=== PATIENT | female | born 1945 | race African-American/Black ===

== ENCOUNTER 2020-02-11 11:46 | Inpatient (IN) ==
[2020-02-11] MEDS ORDERED: PANTOPRAZOLE 40 MG VIAL IV STA (12:15)
[2020-02-11 12:54] LABS: INR 1.2; PT Patient Result 12.8 SECS (9.8-11.9)
[2020-02-11 13:06] LABS: Albumin 2.6 G/DL (3.4-5.0); Bilirubin,Total 0.4 MG/DL (0.2-1.0); Calcium 10.6 MG/DL (8.5-10.1); Total Protein 8.1 G/DL (6.4-8.3); Uric Acid 11.5 MG/DL (2.6-6.0)
[2020-02-11 13:13] LABS: Basophils % 0.1 % (0.0-0.8); Eosinophils # 0.1 10*3/uL (0.0-0.87); Eosinophils % 0.5 % (0.00-10.9); Hematocrit 42.6 VOL% (35.7-47.0); Hemoglobin 12.5 GM/DL (12.0-16.0); Immature Granulocytes % 0.6 %; Immature Granulocytes Absolute 0.08 #; Lymphocytes # 2.9 10*3/uL (1.4-4.0); Lymphocytes % 21.2 % (21.3-54.2); Mean Corpuscular HGB Conc 29.3 GM/DL (32-36); Mean Corpuscular Volume 75.1 FL (87-102); Mean Platelet Volume 11.7 FL (9.6-12.0); Monocytes % 7.9 % (1.7-12.7); NRBC # 0.06 10*3/uL; Neutrophils % 69.7 % (38.7-73.9); Platelet Count 109 T/CUMM (130-400); Red Blood Count 5.67 MC/CUMM (3.8-5.5); Red Cell Distribution Width 17.1 % (9.3-17.3); White Blood Count 13.5 T/CUMM (4-12)
[2020-02-11 13:14] LABS: Platelet Estimate Adequate
[2020-02-11 13:15] LABS: Anisocytosis 1+; Burr Cells Few
[2020-02-11] MEDS ORDERED: SODIUM CHLORIDE 0.45% 1,000 ML IV ONE (14:20)
[2020-02-11] MEDS ORDERED: GLUCAGON 1 MG VIAL IM PRN (15:23)
[2020-02-11] MEDS ORDERED: DEXTROSE 50% 25 GM/50 ML VIAL IV PRN (15:23)
[2020-02-11 16:24] LABS: Risk Ratio 6.43; Thyroid Stimulating Hormone 1.23 uIU/ml (0.358-3.74); VLDL CHOLESTEROL 44.8 MG/DL
[2020-02-11] MEDS: SODIUM CHLORIDE 0.45% 1,000 ML IV SCH (18:26)
[2020-02-11] MEDS: INSULIN LISPRO 100 UNIT/ML SUBCUT SCH ×2 (18:27→20:59)
[2020-02-11] MEDS ORDERED: levETIRAcetam LIQUID 100 MG/ML 30 ML/BOTTLE PO SCH (21:00)
[2020-02-11] MEDS: PANTOPRAZOLE 40 MG VIAL IV SCH (21:21)
[2020-02-12] MEDS: SODIUM CHLORIDE 0.45% 1,000 ML IV SCH ×3 (03:33→20:52)
[2020-02-12 05:17] LABS: Albumin 2.1 G/DL (3.4-5.0); Bilirubin,Total 1.5 MG/DL (0.2-1.0); Calcium 9.1 MG/DL (8.5-10.1); Osmolality,Calculated 353.5 MOS/KG (273-304); Total Protein 6.7 G/DL (6.4-8.3)
[2020-02-12 07:14] LABS: Basophils % 0.1 % (0.0-0.8); Eosinophils % 0.1 % (0.00-10.9); Hematocrit 34.7 VOL% (35.7-47.0); Immature Granulocytes % 0.7 %; Immature Granulocytes Absolute 0.11 #; Lymphocytes # 3.4 10*3/uL (1.4-4.0); Mean Corpuscular HGB Conc 29.4 GM/DL (32-36); Mean Corpuscular Volume 76.6 FL (87-102); Monocytes % 7.5 % (1.7-12.7); NRBC # 0.13 10*3/uL; Neutrophils % 68.6 % (38.7-73.9); Red Cell Distribution Width 16.3 % (9.3-17.3); White Blood Count 14.9 T/CUMM (4-12)
[2020-02-12 07:15] LABS: Hemoglobin 10.2 GM/DL (12.0-16.0); Platelet Count 76 T/CUMM (130-400); Red Blood Count 4.53 MC/CUMM (3.8-5.5)
[2020-02-12 07:20] LABS: Macrocytosis Slight; Platelet Estimate Decreased; Polychromasia Slight
[2020-02-12] MEDS: INSULIN LISPRO 100 UNIT/ML SUBCUT SCH ×3 (07:51→19:09)
[2020-02-12] MEDS: PANTOPRAZOLE 40 MG VIAL IV SCH ×2 (09:20→20:51)
[2020-02-12 13:23] LABS: Hematocrit 34.2 VOL% (35.7-47.0); Hemoglobin 9.8 GM/DL (12.0-16.0)
[2020-02-13] MEDS: INSULIN LISPRO 100 UNIT/ML SUBCUT SCH ×4 (00:40→19:07)
[2020-02-13] MEDS: SODIUM CHLORIDE 0.45% 1,000 ML IV SCH ×2 (00:41→08:33)
[2020-02-13 08:16] LABS: Basophils % 0.2 % (0.0-0.8); Eosinophils # 0.1 10*3/uL (0.0-0.87); Eosinophils % 0.6 % (0.00-10.9); Hematocrit 30.1 VOL% (35.7-47.0); Hemoglobin 8.8 GM/DL (12.0-16.0); Immature Granulocytes Absolute 0.11 #; Lymphocytes # 2.4 10*3/uL (1.4-4.0); Lymphocytes % 22.2 % (21.3-54.2); Mean Corpuscular HGB Conc 29.2 GM/DL (32-36); Monocytes % 5.6 % (1.7-12.7); NRBC # 0.27 10*3/uL; Neutrophils % 70.4 % (38.7-73.9); Platelet Count 69 T/CUMM (130-400); Red Blood Count 3.91 MC/CUMM (3.8-5.5); Red Cell Distribution Width 16.5 % (9.3-17.3); White Blood Count 10.7 T/CUMM (4-12)
[2020-02-13 08:40] LABS: Calcium 8.8 MG/DL (8.5-10.1); Osmolality,Calculated 344.3 MOS/KG (273-304)
[2020-02-13 08:47] LABS: Anisocytosis 1+; Platelet Estimate Decreased
[2020-02-13 08:48] LABS: Ovalocytes Few; Poikilocytosis Slight; Polychromasia Slight
[2020-02-13] MEDS ORDERED: POTASSIUM CHLORIDE RIDER 10 MEQ in PREMIX 1 EACH IV PRN (09:14)
[2020-02-13] MEDS: PANTOPRAZOLE 40 MG VIAL IV SCH ×2 (09:54→22:14)
[2020-02-13 11:54] LABS: Hematocrit 28.4 VOL% (35.7-47.0); Hemoglobin 8.2 GM/DL (12.0-16.0)
[2020-02-13] MEDS: POTASSIUM CHLORIDE INJ 20 MEQ, SODIUM CHLORIDE 23.4% CONC INJ 38.5 MEQ in STERILE WATER... IV SCH ×2 (13:08→22:23)
[2020-02-14] MEDS: INSULIN LISPRO 100 UNIT/ML SUBCUT SCH ×3 (06:16→14:12)
[2020-02-14 06:31] LABS: Basophils % 0.1 % (0.0-0.8); Eosinophils # 0.1 10*3/uL (0.0-0.87); Eosinophils % 0.7 % (0.00-10.9); Hematocrit 25.8 VOL% (35.7-47.0); Immature Granulocytes % 1.6 %; Immature Granulocytes Absolute 0.16 #; Lymphocytes # 2.2 10*3/uL (1.4-4.0); Lymphocytes % 22.6 % (21.3-54.2); Mean Corpuscular HGB Conc 28.7 GM/DL (32-36); Mean Corpuscular Volume 78.2 FL (87-102); Monocytes % 6.3 % (1.7-12.7); NRBC # 0.43 10*3/uL; Neutrophils % 68.7 % (38.7-73.9); Red Cell Distribution Width 16.9 % (9.3-17.3); White Blood Count 9.7 T/CUMM (4-12)
[2020-02-14 06:37] LABS: Hemoglobin 7.4 GM/DL (12.0-16.0); Platelet Count 71 T/CUMM (130-400)
[2020-02-14 06:59] LABS: Calcium 8.4 MG/DL (8.5-10.1)
[2020-02-14 07:29] LABS: Hypochromasia 2+; Microcytosis Slight; Ovalocytes Slight; Platelet Estimate Decreased
[2020-02-14] MEDS ORDERED: SODIUM CHLORIDE 0.9% 1,000 ML IV PRN (08:26)
[2020-02-14] MEDS ORDERED: SODIUM CHLORIDE 23.4% CONC INJ 38.5 MEQ in STERILE WATER INJ 1,000 ML IV SCH (09:00)
[2020-02-14] MEDS: PANTOPRAZOLE 40 MG VIAL IV SCH ×2 (09:23→21:07)
[2020-02-14] MEDS: POTASSIUM CHLORIDE INJ 20 MEQ, SODIUM CHLORIDE 23.4% CONC INJ 38.5 MEQ in STERILE WATER... IV SCH (15:02)
[2020-02-14] MEDS: DEXTROSE 5% 1,000 ML IV SCH (21:14)
[2020-02-15] MEDS: INSULIN LISPRO 100 UNIT/ML SUBCUT SCH ×5 (00:51→18:19)
[2020-02-15] MEDS: DEXTROSE 5% 1,000 ML IV SCH ×2 (06:15→07:42)
[2020-02-15 07:01] LABS: Basophils % 0.2 % (0.0-0.8); Eosinophils # 0.1 10*3/uL (0.0-0.87); Eosinophils % 0.6 % (0.00-10.9); Hematocrit 34.9 VOL% (35.7-47.0); Hemoglobin 10.9 GM/DL (12.0-16.0); Immature Granulocytes Absolute 0.17 #; Lymphocytes # 1.1 10*3/uL (1.4-4.0); Lymphocytes % 12.9 % (21.3-54.2); Mean Corpuscular HGB Conc 31.2 GM/DL (32-36); Mean Corpuscular Volume 80.8 FL (87-102); Mean Platelet Volume 11.2 FL (9.6-12.0); NRBC # 0.47 10*3/uL; Neutrophils % 79.3 % (38.7-73.9); Platelet Count 81 T/CUMM (130-400); Red Blood Count 4.32 MC/CUMM (3.8-5.5); Red Cell Distribution Width 18.6 % (9.3-17.3); White Blood Count 8.7 T/CUMM (4-12)
[2020-02-15 07:38] LABS: Calcium 8.6 MG/DL (8.5-10.1); Osmolality,Calculated 318.4 MOS/KG (273-304)
[2020-02-15 07:41] LABS: Band Neutrophils 1 % (0-10); Hypochromasia 1+; Lymphocytes 11 % (20-55); Nucleated Red Blood Cells 11 (0-5); Platelet Estimate Decreased; Segmented Neutrophils 84 % (50-85); Total Cells Counted 100
[2020-02-15 07:42] LABS: Microcytosis Slight
[2020-02-15] MEDS: PANTOPRAZOLE 40 MG VIAL IV SCH ×2 (09:40→21:22)
[2020-02-15] MEDS: DEXTROSE 5% KCL 20 MEQ 20 MEQ/1,000 ML BAG IV SCH (10:23)
[2020-02-15] MEDS: INSULIN GLARGINE 100 UNIT/ML SUBCUT SCH (21:22)
[2020-02-16] MEDS: INSULIN LISPRO 100 UNIT/ML SUBCUT SCH ×4 (01:14→18:39)
[2020-02-16] MEDS: DEXTROSE 5% KCL 20 MEQ 20 MEQ/1,000 ML BAG IV SCH ×2 (01:14→13:48)
[2020-02-16 05:23] LABS: Basophils % 0.2 % (0.0-0.8); Eosinophils # 0.1 10*3/uL (0.0-0.87); Eosinophils % 1.2 % (0.00-10.9); Hematocrit 34.5 VOL% (35.7-47.0); Hemoglobin 10.7 GM/DL (12.0-16.0); Immature Granulocytes Absolute 0.18 #; Lymphocytes # 1.9 10*3/uL (1.4-4.0); Lymphocytes % 20.5 % (21.3-54.2); Mean Corpuscular Volume 80.4 FL (87-102); Mean Platelet Volume 12.4 FL (9.6-12.0); Monocytes % 6.6 % (1.7-12.7); NRBC # 0.22 10*3/uL; Neutrophils % 69.5 % (38.7-73.9); Platelet Count 95 T/CUMM (130-400); Red Blood Count 4.29 MC/CUMM (3.8-5.5); Red Cell Distribution Width 19.4 % (9.3-17.3); White Blood Count 9.1 T/CUMM (4-12)
[2020-02-16 05:24] LABS: INR 1.2
[2020-02-16 05:32] LABS: Calcium 8.9 MG/DL (8.5-10.1)
[2020-02-16 05:46] LABS: Eosinophils 1 % (0-10); Hypochromasia 1+; Lymphocytes 18 % (20-55); Ovalocytes Slight; Platelet Estimate Decreased; Segmented Neutrophils 75 % (50-85); Total Cells Counted 100
[2020-02-16 05:47] LABS: Microcytosis Slight
[2020-02-16] MEDS ORDERED: ceFAZolin 1,000 MG in SYRINGE 1 EACH IV ONE (08:22)
[2020-02-16] MEDS: LACTATED RINGERS 1,000 ML IV SCH (08:31)
[2020-02-16] MEDS ORDERED: ceFAZolin 1,000 MG VIAL ONE (08:32)
[2020-02-16] MEDS ORDERED: propofoL 200 MG/20 ML VIAL IV ONE (09:00)
[2020-02-16] MEDS ORDERED: LIDOCAINE 100 MG/5 ML SYRINGE ONE (09:00)
[2020-02-16] MEDS ORDERED: PHENYLEPHRINE 1 MG/10 ML SYRINGE IV ONE (09:00)
[2020-02-16] MEDS: PANTOPRAZOLE 40 MG VIAL IV SCH ×2 (11:14→20:25)
[2020-02-16] MEDS ORDERED: BISACODYL 5 MG TABLET PO ONE (12:00)
[2020-02-16] MEDS ORDERED: POLYETHYLENE GLYCOL POWDER 255 GM BOTTLE PO ONE (18:00)
[2020-02-16] MEDS: ONDANSETRON 4 MG/2 ML VIAL IV PRN (20:05)
[2020-02-16] MEDS ORDERED: MAGNESIUM CITRATE 300 ML BOTTLE PO ONE (21:00)
[2020-02-16] MEDS: INSULIN GLARGINE 100 UNIT/ML SUBCUT SCH (21:33)
[2020-02-17] MEDS: INSULIN LISPRO 100 UNIT/ML SUBCUT SCH ×4 (00:31→18:56)
[2020-02-17] MEDS: DEXTROSE 5% KCL 20 MEQ 20 MEQ/1,000 ML BAG IV SCH ×2 (01:35→17:37)
[2020-02-17 05:32] LABS: Basophils % 0.1 % (0.0-0.8); Eosinophils # 0.1 10*3/uL (0.0-0.87); Eosinophils % 1.1 % (0.00-10.9); Hematocrit 33.8 VOL% (35.7-47.0); Hemoglobin 10.4 GM/DL (12.0-16.0); Immature Granulocytes % 1.5 %; Immature Granulocytes Absolute 0.14 #; Lymphocytes # 1.9 10*3/uL (1.4-4.0); Lymphocytes % 20.4 % (21.3-54.2); Mean Corpuscular HGB Conc 30.8 GM/DL (32-36); Mean Corpuscular Volume 81.6 FL (87-102); Mean Platelet Volume 11.1 FL (9.6-12.0); Monocytes % 8.6 % (1.7-12.7); NRBC # 0.04 10*3/uL; Neutrophils % 68.3 % (38.7-73.9); Platelet Count 106 T/CUMM (130-400); Red Blood Count 4.14 MC/CUMM (3.8-5.5); White Blood Count 9.1 T/CUMM (4-12)
[2020-02-17 05:37] LABS: INR 1.3; PT Patient Result 13.3 SECS (9.8-11.9)
[2020-02-17 05:57] LABS: Lymphocytes 23 % (20-55); Nucleated Red Blood Cells 1 (0-5); Platelet Estimate Decreased; Segmented Neutrophils 70 % (50-85); Total Cells Counted 100
[2020-02-17 05:58] LABS: Hypochromasia 1+; Microcytosis Slight; Ovalocytes Slight
[2020-02-17 06:03] LABS: Calcium 8.6 MG/DL (8.5-10.1); Osmolality,Calculated 295.6 MOS/KG (273-304)
[2020-02-17] MEDS ORDERED: LACTATED RINGERS 1,000 ML IV SCH (08:00)
[2020-02-17] MEDS ORDERED: POLYETHYLENE GLYCOL POWDER 255 GM BOTTLE PO ONE (08:36)
[2020-02-17] MEDS: PANTOPRAZOLE 40 MG VIAL IV SCH ×2 (08:37→22:18)
[2020-02-17] MEDS ORDERED: [UNRECOGNIZED DRUG - OTHER] IV SCH (09:00)
[2020-02-17] MEDS ORDERED: POTASSIUM CHLORIDE IV SCH (09:00)
[2020-02-17] MEDS ORDERED: SODIUM BICARB IV SCH (09:00)
[2020-02-17] MEDS: LACTATED RINGERS 1,000 ML IV SCH (09:33)
[2020-02-17] MEDS: POTASSIUM CHLORIDE 20 MEQ/15 ML UDCUP PER TUBE PRN ×4 (09:35→19:35)
[2020-02-17] MEDS: DEXTROSE 5% IV SCH (12:16)
[2020-02-17] MEDS: SODIUM BICARB IV SCH (12:16)
[2020-02-17] MEDS: POTASSIUM CHLORIDE IV SCH (12:16)
[2020-02-17] MEDS: INSULIN GLARGINE 100 UNIT/ML SUBCUT SCH (20:54)
[2020-02-17] MEDS ORDERED: MAGNESIUM CITRATE 300 ML BOTTLE PO ONE (21:30)
[2020-02-17] MEDS: ONDANSETRON 4 MG/2 ML VIAL IV PRN (22:56)
[2020-02-18] MEDS: INSULIN LISPRO 100 UNIT/ML SUBCUT SCH ×4 (01:06→18:53)
[2020-02-18 06:00] LABS: Calcium 8.8 MG/DL (8.5-10.1); Osmolality,Calculated 290.7 MOS/KG (273-304)
[2020-02-18] MEDS: SODIUM BICARB IV SCH ×2 (06:13→20:13)
[2020-02-18] MEDS: DEXTROSE 5% IV SCH ×2 (06:13→20:13)
[2020-02-18] MEDS: POTASSIUM CHLORIDE IV SCH ×2 (06:13→20:13)
[2020-02-18 06:57] LABS: Basophils % 0.1 % (0.0-0.8); Eosinophils # 0.1 10*3/uL (0.0-0.87); Hematocrit 33.1 VOL% (35.7-47.0); Hemoglobin 10.1 GM/DL (12.0-16.0); Immature Granulocytes % 1.2 %; Lymphocytes # 1.8 10*3/uL (1.4-4.0); Lymphocytes % 22.3 % (21.3-54.2); Mean Corpuscular HGB Conc 30.5 GM/DL (32-36); Mean Corpuscular Volume 81.5 FL (87-102); Mean Platelet Volume 11.8 FL (9.6-12.0); Monocytes % 6.7 % (1.7-12.7); NRBC # 0.04 10*3/uL; Neutrophils % 68.7 % (38.7-73.9); Platelet Count 122 T/CUMM (130-400); Red Blood Count 4.06 MC/CUMM (3.8-5.5); White Blood Count 8.2 T/CUMM (4-12)
[2020-02-18 07:20] LABS: Eosinophils 1 % (0-10); Lymphocytes 17 % (20-55); Segmented Neutrophils 74 % (50-85); Total Cells Counted 100
[2020-02-18 07:21] LABS: Hypochromasia 1+; Microcytosis 1+
[2020-02-18] MEDS ORDERED: LACTATED RINGERS 1,000 ML IV SCH (08:00)
[2020-02-18] MEDS ORDERED: POLYETHYLENE GLYCOL POWDER 255 GM BOTTLE PO ONE (08:21)
[2020-02-18] MEDS: PANTOPRAZOLE 40 MG VIAL IV SCH ×2 (09:11→20:10)
[2020-02-18] MEDS: INSULIN GLARGINE 100 UNIT/ML SUBCUT SCH (21:05)
[2020-02-18] MEDS ORDERED: MAGNESIUM CITRATE 300 ML BOTTLE PO ONE (22:19)
[2020-02-19] MEDS: INSULIN LISPRO 100 UNIT/ML SUBCUT SCH ×4 (01:13→18:17)
[2020-02-19 05:31] LABS: Basophils % 0.2 % (0.0-0.8); Eosinophils # 0.1 10*3/uL (0.0-0.87); Eosinophils % 0.6 % (0.00-10.9); Hematocrit 30.8 VOL% (35.7-47.0); Hemoglobin 9.6 GM/DL (12.0-16.0); Immature Granulocytes Absolute 0.08 #; Lymphocytes # 1.6 10*3/uL (1.4-4.0); Lymphocytes % 19.9 % (21.3-54.2); Mean Corpuscular HGB Conc 31.2 GM/DL (32-36); Mean Corpuscular Volume 80.2 FL (87-102); Mean Platelet Volume 10.5 FL (9.6-12.0); Monocytes % 7.9 % (1.7-12.7); Neutrophils % 70.4 % (38.7-73.9); Platelet Count 146 T/CUMM (130-400); Red Blood Count 3.84 MC/CUMM (3.8-5.5); Red Cell Distribution Width 20.9 % (9.3-17.3); White Blood Count 8.2 T/CUMM (4-12)
[2020-02-19 06:05] LABS: Calcium 8.5 MG/DL (8.5-10.1); Osmolality,Calculated 281.3 MOS/KG (273-304)
[2020-02-19] MEDS ORDERED: LACTATED RINGERS 1,000 ML IV SCH (08:00)
[2020-02-19] MEDS: PANTOPRAZOLE 40 MG VIAL IV SCH ×2 (10:25→21:07)
[2020-02-19] MEDS: DEXTROSE 5% IV SCH (10:35)
[2020-02-19] MEDS: SODIUM BICARB IV SCH (10:35)
[2020-02-19] MEDS: POTASSIUM CHLORIDE IV SCH (10:35)
[2020-02-19] MEDS ORDERED: POTASSIUM PHOSPHATE 21 MMOL in SODIUM CHLORIDE 0.9% 250 ML IV ONE (12:30)
[2020-02-19] MEDS: INSULIN GLARGINE 100 UNIT/ML SUBCUT SCH (21:06)
[2020-02-20] MEDS: INSULIN LISPRO 100 UNIT/ML SUBCUT SCH ×3 (01:19→12:04)
[2020-02-20 06:21] LABS: Basophils % 0.1 % (0.0-0.8); Eosinophils # 0.1 10*3/uL (0.0-0.87); Eosinophils % 0.8 % (0.00-10.9); Hematocrit 27.3 VOL% (35.7-47.0); Hemoglobin 8.9 GM/DL (12.0-16.0); Immature Granulocytes % 0.8 %; Immature Granulocytes Absolute 0.07 #; Lymphocytes # 1.5 10*3/uL (1.4-4.0); Lymphocytes % 16.6 % (21.3-54.2); Mean Corpuscular HGB Conc 32.6 GM/DL (32-36); Mean Corpuscular Volume 77.3 FL (87-102); Mean Platelet Volume 10.6 FL (9.6-12.0); Monocytes % 7.7 % (1.7-12.7); Platelet Count 164 T/CUMM (130-400); Red Blood Count 3.53 MC/CUMM (3.8-5.5); Red Cell Distribution Width 20.7 % (9.3-17.3); White Blood Count 9.2 T/CUMM (4-12)
[2020-02-20] MEDS ORDERED: SUCRALFATE 1 GM/10 ML UDCUP RECTAL SCH (09:00)
[2020-02-20] MEDS ORDERED: LACTULOSE 20 GM/30 ML UDCUP PO SCH (09:00)
[2020-02-20] MEDS: PANTOPRAZOLE 40 MG VIAL IV SCH (10:10)
[2020-02-20 11:46] VITALS: BP 148/81
== END 2020-02-20 13:29 | DRG 252 ==
LOC: EDUNIT# → EDBD → N.ED 11:46 → SUATTDRO 14:51 → N.EDINP 14:51 → N.TELES 17:06 → N.4E 02-16 11:58
PROVIDERS: ADMIT Internal Medicine; ATTEND Hospitalist
PROC: EGDWPEG (ICD-10-PCS; 2020-02-16 08:05)

== ENCOUNTER 2020-02-26 20:35 | Inpatient (IN) ==
[2020-02-26] MEDS ORDERED: SODIUM CHLORIDE 0.9% 500 ML IV STA (22:26)
[2020-02-26] MEDS ORDERED: PANTOPRAZOLE 40 MG VIAL IV STA (22:26)
[2020-02-26] MEDS ORDERED: ONDANSETRON 4 MG/2 ML VIAL IV STA (22:26)
[2020-02-26 22:48] LABS: Basophils % 0.3 % (0.0-0.8); Eosinophils # 0.1 10*3/uL (0.0-0.87); Eosinophils % 0.5 % (0.00-10.9); Hematocrit 31.7 VOL% (35.7-47.0); Hemoglobin 9.7 GM/DL (12.0-16.0); Immature Granulocytes % 0.8 %; Immature Granulocytes Absolute 0.08 #; Lymphocytes # 1.7 10*3/uL (1.4-4.0); Lymphocytes % 17.7 % (21.3-54.2); Mean Corpuscular HGB Conc 30.6 GM/DL (32-36); Mean Corpuscular Volume 80.7 FL (87-102); Mean Platelet Volume 9.4 FL (9.6-12.0); Monocytes % 9.5 % (1.7-12.7); NRBC # 0.05 10*3/uL; Neutrophils % 71.2 % (38.7-73.9); Platelet Count 311 T/CUMM (130-400); Red Blood Count 3.93 MC/CUMM (3.8-5.5); Red Cell Distribution Width 21.2 % (9.3-17.3); White Blood Count 9.9 T/CUMM (4-12)
[2020-02-26 22:57] LABS: PT Patient Result 11.2 SECS (9.8-11.9)
[2020-02-26 23:12] LABS: Albumin 1.7 G/DL (3.4-5.0); Bilirubin,Total 0.4 MG/DL (0.2-1.0); Osmolality,Calculated 286.4 MOS/KG (273-304); Total Protein 7.3 G/DL (6.4-8.3)
[2020-02-27] MEDS ORDERED: hydrALAZINE 20 MG/1 ML VIAL IV PRN (00:46)
[2020-02-27] MEDS ORDERED: NICOTINE 21 MG/24 HR PATCH TRANSDERM PRN (00:46)
[2020-02-27] MEDS ORDERED: GLUCAGON 1 MG VIAL IM PRN (00:46)
[2020-02-27] MEDS ORDERED: DEXTROSE 50% 25 GM/50 ML VIAL IV PRN (00:46)
[2020-02-27] MEDS ORDERED: ONDANSETRON 4 MG/2 ML VIAL IV PRN (00:46)
[2020-02-27 06:12] LABS: Basophils % 0.3 % (0.0-0.8); Eosinophils % 0.3 % (0.00-10.9); Hemoglobin 8.1 GM/DL (12.0-16.0); Immature Granulocytes % 0.9 %; Immature Granulocytes Absolute 0.09 #; Lymphocytes # 1.7 10*3/uL (1.4-4.0); Lymphocytes % 16.7 % (21.3-54.2); Mean Corpuscular HGB Conc 31.2 GM/DL (32-36); Mean Platelet Volume 9.1 FL (9.6-12.0); Monocytes % 9.9 % (1.7-12.7); NRBC # 0.04 10*3/uL; Neutrophils % 71.9 % (38.7-73.9); Platelet Count 335 T/CUMM (130-400); Red Blood Count 3.29 MC/CUMM (3.8-5.5); White Blood Count 9.9 T/CUMM (4-12)
[2020-02-27] MEDS ORDERED: SODIUM CHLORIDE 0.9% 1,000 ML IV PRN (06:42)
[2020-02-27] MEDS: INSULIN REGULAR 100 UNIT/ML SUBCUT SCH ×4 (09:14→20:19)
[2020-02-27] MEDS: CIPROFLOXACIN INJ 400 MG in PREMIX 1 EACH IV SCH ×2 (09:49→20:19)
[2020-02-27 10:40] LABS: Apearance,Urine CLEAR (Clear); Bilirubin,Urine Negative (Negative); Blood, Urine Negative (Negative); Glucose,Urine (UA) >=500 mg/dL (Negative); Ketones,Urine 5 mg/dL (Negative); Nitrite,Urine Negative (Negative); Protein,Urine 30 MG/DL; RBC,Urine 1 /HPF (0-4); Squamous Epithelial Cell,Urine Occasional /HPF (0-10); Urine Color Yellow (Yellow); Urine Specific Gravity 1.012 (1.001-1.035); Urine Urobilinogen < 2.0 EU/DL (0.2-1.0); WBC,Urine 1 /HPF (0-6)
[2020-02-27] MEDS: metroNIDAZOLE INJ 500 MG in PREMIX 1 EACH IV SCH ×2 (10:51→17:23)
[2020-02-27] MEDS: SODIUM CHLORIDE 0.45% 1,000 ML IV SCH (17:23)
[2020-02-28] MEDS: metroNIDAZOLE INJ 500 MG in PREMIX 1 EACH IV SCH ×3 (01:56→18:11)
[2020-02-28 06:38] LABS: Basophils % 0.3 % (0.0-0.8); Eosinophils # 0.1 10*3/uL (0.0-0.87); Eosinophils % 0.6 % (0.00-10.9); Hematocrit 29.7 VOL% (35.7-47.0); Hemoglobin 9.4 GM/DL (12.0-16.0); Immature Granulocytes % 1.1 %; Immature Granulocytes Absolute 0.11 #; Lymphocytes # 2.3 10*3/uL (1.4-4.0); Lymphocytes % 22.1 % (21.3-54.2); Mean Corpuscular HGB Conc 31.6 GM/DL (32-36); Mean Corpuscular Volume 81.4 FL (87-102); Mean Platelet Volume 9.1 FL (9.6-12.0); NRBC # 0.04 10*3/uL; Neutrophils % 66.9 % (38.7-73.9); Platelet Count 304 T/CUMM (130-400); Red Blood Count 3.65 MC/CUMM (3.8-5.5); White Blood Count 10.2 T/CUMM (4-12)
[2020-02-28 06:49] LABS: Osmolality,Calculated 281.4 MOS/KG (273-304)
[2020-02-28 06:54] LABS: Albumin 1.6 G/DL (3.4-5.0); Bilirubin,Total 0.8 MG/DL (0.2-1.0); Calcium 9.1 MG/DL (8.5-10.1); Osmolality,Calculated 281.4 MOS/KG (273-304); Total Protein 6.8 G/DL (6.4-8.3)
[2020-02-28 06:55] LABS: % Iron Saturation 20.4 % (18-50)
[2020-02-28 07:13] LABS: Folate 8.4 NG/ML (5.4-24.0)
[2020-02-28] MEDS: CIPROFLOXACIN INJ 400 MG in PREMIX 1 EACH IV SCH ×2 (08:01→20:45)
[2020-02-28] MEDS: INSULIN REGULAR 100 UNIT/ML SUBCUT SCH ×4 (08:14→21:13)
[2020-02-28] MEDS ORDERED: IRON SUCROSE 300 MG in SODIUM CHLORIDE 0.9% 100 ML IV ONE (09:00)
[2020-02-28] MEDS: SODIUM CHLORIDE 0.45% 1,000 ML IV SCH (20:44)
[2020-02-29] MEDS: metroNIDAZOLE INJ 500 MG in PREMIX 1 EACH IV SCH ×3 (01:15→17:20)
[2020-02-29 06:52] LABS: Basophils % 0.5 % (0.0-0.8); Eosinophils # 0.1 10*3/uL (0.0-0.87); Eosinophils % 0.7 % (0.00-10.9); Hematocrit 33.6 VOL% (35.7-47.0); Hemoglobin 10.6 GM/DL (12.0-16.0); Immature Granulocytes % 1.4 %; Immature Granulocytes Absolute 0.12 #; Lymphocytes # 1.5 10*3/uL (1.4-4.0); Lymphocytes % 18.1 % (21.3-54.2); Mean Corpuscular HGB Conc 31.5 GM/DL (32-36); Mean Corpuscular Volume 81.2 FL (87-102); Mean Platelet Volume 10.6 FL (9.6-12.0); Monocytes % 8.3 % (1.7-12.7); NRBC # 0.06 10*3/uL; Platelet Count 230 T/CUMM (130-400); Red Blood Count 4.14 MC/CUMM (3.8-5.5); Red Cell Distribution Width 21.1 % (9.3-17.3); White Blood Count 8.5 T/CUMM (4-12)
[2020-02-29 07:15] LABS: Albumin 1.6 G/DL (3.4-5.0); Bilirubin,Total 0.6 MG/DL (0.2-1.0); Calcium 9.2 MG/DL (8.5-10.1); Osmolality,Calculated 274.1 MOS/KG (273-304); Total Protein 7.3 G/DL (6.4-8.3)
[2020-02-29] MEDS: INSULIN REGULAR 100 UNIT/ML SUBCUT SCH ×4 (08:16→20:50)
[2020-02-29] MEDS: SODIUM CHLORIDE 0.45% 1,000 ML IV SCH (09:46)
[2020-02-29] MEDS: CIPROFLOXACIN INJ 400 MG in PREMIX 1 EACH IV SCH ×2 (09:47→20:47)
[2020-03-01] MEDS: metroNIDAZOLE INJ 500 MG in PREMIX 1 EACH IV SCH ×3 (02:05→17:25)
[2020-03-01] MEDS: SODIUM CHLORIDE 0.45% 1,000 ML IV SCH (02:36)
[2020-03-01] MEDS: MORPHINE 4 MG/1 ML VIAL IV PRN ×2 (05:54→13:06)
[2020-03-01 06:32] LABS: Basophils % 0.4 % (0.0-0.8); Eosinophils # 0.1 10*3/uL (0.0-0.87); Eosinophils % 0.5 % (0.00-10.9); Hematocrit 33.9 VOL% (35.7-47.0); Hemoglobin 10.4 GM/DL (12.0-16.0); Immature Granulocytes % 2.3 %; Immature Granulocytes Absolute 0.23 #; Lymphocytes # 1.6 10*3/uL (1.4-4.0); Lymphocytes % 16.1 % (21.3-54.2); Mean Corpuscular HGB Conc 30.7 GM/DL (32-36); Mean Corpuscular Volume 82.1 FL (87-102); Mean Platelet Volume 9.3 FL (9.6-12.0); Monocytes % 9.5 % (1.7-12.7); NRBC # 0.06 10*3/uL; Neutrophils % 71.2 % (38.7-73.9); Platelet Count 352 T/CUMM (130-400); Red Blood Count 4.13 MC/CUMM (3.8-5.5); Red Cell Distribution Width 21.2 % (9.3-17.3)
[2020-03-01 06:49] LABS: Calcium 9.1 MG/DL (8.5-10.1); Osmolality,Calculated 275.1 MOS/KG (273-304)
[2020-03-01 06:50] LABS: Albumin 1.7 G/DL (3.4-5.0); Bilirubin,Total 0.5 MG/DL (0.2-1.0); Calcium 9.4 MG/DL (8.5-10.1); Osmolality,Calculated 274.1 MOS/KG (273-304); Total Protein 7.5 G/DL (6.4-8.3)
[2020-03-01] MEDS: INSULIN REGULAR 100 UNIT/ML SUBCUT SCH ×3 (07:55→17:55)
[2020-03-01] MEDS: CIPROFLOXACIN INJ 400 MG in PREMIX 1 EACH IV SCH ×2 (08:15→21:45)
[2020-03-01] MEDS ORDERED: LORazepam 2 MG/1 ML VIAL IV PRN (09:08)
[2020-03-01] MEDS ORDERED: LACTULOSE 20 GM/30 ML UDCUP PO SCH (09:30)
[2020-03-01] MEDS: carvediloL 12.5 MG TABLET PO SCH ×2 (10:05→17:31)
[2020-03-01] MEDS: amLODIPine 10 MG TABLET PO SCH (10:05)
[2020-03-01] MEDS ORDERED: POTASSIUM PHOSPHATE 30 MMOL in SODIUM CHLORIDE 0.9% 250 ML IV ONE (17:09)
[2020-03-02] MEDS: INSULIN REGULAR 100 UNIT/ML SUBCUT SCH ×4 (01:13→17:03)
[2020-03-02] MEDS: metroNIDAZOLE INJ 500 MG in PREMIX 1 EACH IV SCH ×3 (01:42→16:40)
[2020-03-02] MEDS: SODIUM CHLORIDE 0.45% 1,000 ML IV SCH (05:04)
[2020-03-02 05:26] LABS: Basophils % 0.3 % (0.0-0.8); Eosinophils # 0.1 10*3/uL (0.0-0.87); Eosinophils % 0.6 % (0.00-10.9); Hematocrit 31.4 VOL% (35.7-47.0); Hemoglobin 9.8 GM/DL (12.0-16.0); Immature Granulocytes % 2.1 %; Immature Granulocytes Absolute 0.21 #; Lymphocytes # 1.8 10*3/uL (1.4-4.0); Lymphocytes % 18.2 % (21.3-54.2); Mean Corpuscular HGB Conc 31.2 GM/DL (32-36); Mean Corpuscular Volume 80.9 FL (87-102); Mean Platelet Volume 8.5 FL (9.6-12.0); Monocytes % 6.9 % (1.7-12.7); Neutrophils % 71.9 % (38.7-73.9); Platelet Count 347 T/CUMM (130-400); Red Blood Count 3.88 MC/CUMM (3.8-5.5); Red Cell Distribution Width 21.2 % (9.3-17.3); White Blood Count 9.9 T/CUMM (4-12)
[2020-03-02 05:39] LABS: Albumin 1.5 G/DL (3.4-5.0); Bilirubin,Total 0.4 MG/DL (0.2-1.0); Osmolality,Calculated 277.5 MOS/KG (273-304); Total Protein 6.8 G/DL (6.4-8.3)
[2020-03-02] MEDS ORDERED: MAGNESIUM SULF RIDER 2 GM in PREMIX 1 EACH IV PRN (07:01)
[2020-03-02] MEDS ORDERED: MAGNESIUM SULF RIDER 4 GM in PREMIX 1 EACH IV PRN (07:01)
[2020-03-02] MEDS ORDERED: POTASSIUM CHLORIDE 20 MEQ/15 ML UDCUP PER TUBE PRN (07:01)
[2020-03-02] MEDS: amLODIPine 10 MG TABLET PO SCH (08:50)
[2020-03-02] MEDS: carvediloL 12.5 MG TABLET PO SCH ×2 (08:50→16:50)
[2020-03-02] MEDS: CIPROFLOXACIN INJ 400 MG in PREMIX 1 EACH IV SCH ×2 (08:51→21:42)
[2020-03-02] MEDS: levETIRAcetam LIQUID 100 MG/ML 30 ML/BOTTLE PO SCH ×2 (10:48→21:43)
[2020-03-02] MEDS: FAT EMULSION 20% 250 ML IV SCH (16:30)
[2020-03-02] MEDS: AMINO ACIDS IV SCH (16:32)
[2020-03-02] MEDS: POTASSIUM PHOSPHATE IV SCH (16:32)
[2020-03-02] MEDS: DEXT IV SCH (16:32)
[2020-03-02] MEDS: LYTES IV SCH (16:32)
[2020-03-02] MEDS ORDERED: DEXTROSE 10% 1,000 ML IV PRN (17:00)
[2020-03-03] MEDS: INSULIN REGULAR 100 UNIT/ML SUBCUT SCH ×4 (01:26→18:15)
[2020-03-03] MEDS: metroNIDAZOLE INJ 500 MG in PREMIX 1 EACH IV SCH ×3 (03:15→16:56)
[2020-03-03 06:20] LABS: Basophils % 0.3 % (0.0-0.8); Eosinophils % 0.2 % (0.00-10.9); Hematocrit 34.5 VOL% (35.7-47.0); Immature Granulocytes % 1.3 %; Immature Granulocytes Absolute 0.17 #; Lymphocytes # 1.8 10*3/uL (1.4-4.0); Lymphocytes % 14.2 % (21.3-54.2); Mean Corpuscular HGB Conc 31.9 GM/DL (32-36); Mean Corpuscular Volume 80.8 FL (87-102); Mean Platelet Volume 9.5 FL (9.6-12.0); Monocytes % 6.1 % (1.7-12.7); Neutrophils % 77.9 % (38.7-73.9); Platelet Count 402 T/CUMM (130-400); Red Blood Count 4.27 MC/CUMM (3.8-5.5); Red Cell Distribution Width 21.3 % (9.3-17.3); White Blood Count 12.9 T/CUMM (4-12)
[2020-03-03] MEDS: carvediloL 12.5 MG TABLET PO SCH (06:24)
[2020-03-03 06:51] LABS: Prealbumin 11.1 MG/DL (20-40)
[2020-03-03 07:24] LABS: Albumin 1.8 G/DL (3.4-5.0); Bilirubin,Total 0.4 MG/DL (0.2-1.0); Calcium 9.5 MG/DL (8.5-10.1); Osmolality,Calculated 280.8 MOS/KG (273-304); Total Protein 7.7 G/DL (6.4-8.3)
[2020-03-03] MEDS ORDERED: SODIUM CHLORIDE 0.9% 500 ML IV ONE (08:01)
[2020-03-03] MEDS: levETIRAcetam LIQUID 100 MG/ML 30 ML/BOTTLE PO SCH (09:30)
[2020-03-03] MEDS: amLODIPine 10 MG TABLET PO SCH (09:30)
[2020-03-03] MEDS: METOPROLOL TARTRATE 5 MG/5 ML VIAL IV SCH ×2 (11:12→18:12)
[2020-03-03] MEDS: CIPROFLOXACIN INJ 400 MG in PREMIX 1 EACH IV SCH ×2 (13:46→20:14)
[2020-03-03] MEDS: FAT EMULSION 20% 250 ML IV SCH (14:54)
[2020-03-03] MEDS: AMINO ACIDS IV SCH (16:57)
[2020-03-03] MEDS: POTASSIUM PHOSPHATE IV SCH (16:57)
[2020-03-03] MEDS: DEXT IV SCH (16:57)
[2020-03-03] MEDS: LYTES IV SCH (16:57)
[2020-03-04] MEDS: INSULIN REGULAR 100 UNIT/ML SUBCUT SCH ×4 (00:16→17:40)
[2020-03-04] MEDS: METOPROLOL TARTRATE 5 MG/5 ML VIAL IV SCH ×4 (00:17→17:10)
[2020-03-04] MEDS: metroNIDAZOLE INJ 500 MG in PREMIX 1 EACH IV SCH ×3 (00:37→17:21)
[2020-03-04 05:49] LABS: Basophils % 0.2 % (0.0-0.8); Eosinophils # 0.1 10*3/uL (0.0-0.87); Eosinophils % 0.7 % (0.00-10.9); Hematocrit 32.6 VOL% (35.7-47.0); Hemoglobin 10.1 GM/DL (12.0-16.0); Immature Granulocytes % 1.4 %; Immature Granulocytes Absolute 0.16 #; Lymphocytes # 1.9 10*3/uL (1.4-4.0); Lymphocytes % 16.4 % (21.3-54.2); Mean Corpuscular Volume 82.1 FL (87-102); Mean Platelet Volume 8.8 FL (9.6-12.0); Monocytes % 8.2 % (1.7-12.7); Neutrophils % 73.1 % (38.7-73.9); Platelet Count 370 T/CUMM (130-400); Red Blood Count 3.97 MC/CUMM (3.8-5.5); Red Cell Distribution Width 21.1 % (9.3-17.3); White Blood Count 11.7 T/CUMM (4-12)
[2020-03-04 06:00] LABS: Calcium 8.8 MG/DL (8.5-10.1); Osmolality,Calculated 280.8 MOS/KG (273-304)
[2020-03-04] MEDS ORDERED: LIDOCAINE 2% 5 ML VIAL ONE (09:00)
[2020-03-04] MEDS ORDERED: propofoL 200 MG/20 ML VIAL IV ONE (09:00)
[2020-03-04] MEDS: LACTATED RINGERS 1,000 ML IV SCH (10:46)
[2020-03-04] MEDS: INSULIN GLARGINE 100 UNIT/ML SUBCUT SCH (11:28)
[2020-03-04] MEDS: CIPROFLOXACIN INJ 400 MG in PREMIX 1 EACH IV SCH ×2 (12:44→22:21)
[2020-03-04] MEDS: FAT EMULSION 20% 250 ML IV SCH (14:34)
[2020-03-04] MEDS: LYTES IV SCH (17:21)
[2020-03-04] MEDS: DEXT IV SCH (17:21)
[2020-03-04] MEDS: POTASSIUM PHOSPHATE IV SCH (17:21)
[2020-03-04] MEDS: AMINO ACIDS IV SCH (17:21)
[2020-03-05] MEDS: INSULIN REGULAR 100 UNIT/ML SUBCUT SCH ×4 (00:58→18:14)
[2020-03-05] MEDS: METOPROLOL TARTRATE 5 MG/5 ML VIAL IV SCH ×4 (00:59→18:14)
[2020-03-05] MEDS: metroNIDAZOLE INJ 500 MG in PREMIX 1 EACH IV SCH ×3 (01:45→16:41)
[2020-03-05 05:53] LABS: Basophils % 0.3 % (0.0-0.8); Eosinophils # 0.1 10*3/uL (0.0-0.87); Eosinophils % 0.7 % (0.00-10.9); Hematocrit 30.4 VOL% (35.7-47.0); Hemoglobin 9.6 GM/DL (12.0-16.0); Immature Granulocytes % 1.6 %; Immature Granulocytes Absolute 0.18 #; Lymphocytes % 17.3 % (21.3-54.2); Mean Corpuscular HGB Conc 31.6 GM/DL (32-36); Mean Corpuscular Volume 81.3 FL (87-102); Mean Platelet Volume 8.7 FL (9.6-12.0); Monocytes % 9.1 % (1.7-12.7); Platelet Count 364 T/CUMM (130-400); Red Blood Count 3.74 MC/CUMM (3.8-5.5); Red Cell Distribution Width 21.1 % (9.3-17.3); White Blood Count 11.4 T/CUMM (4-12)
[2020-03-05 06:24] LABS: Calcium 9.1 MG/DL (8.5-10.1); Osmolality,Calculated 281.7 MOS/KG (273-304)
[2020-03-05] MEDS: CIPROFLOXACIN INJ 400 MG in PREMIX 1 EACH IV SCH ×2 (08:15→21:38)
[2020-03-05] MEDS: INSULIN GLARGINE 100 UNIT/ML SUBCUT SCH (08:55)
[2020-03-05] MEDS: LACTATED RINGERS 1,000 ML IV SCH (16:49)
[2020-03-06] MEDS: METOPROLOL TARTRATE 5 MG/5 ML VIAL IV SCH ×4 (01:14→17:01)
[2020-03-06] MEDS: INSULIN REGULAR 100 UNIT/ML SUBCUT SCH ×4 (01:14→17:03)
[2020-03-06] MEDS: POTASSIUM PHOSPHATE IV SCH (01:15)
[2020-03-06] MEDS: LYTES IV SCH (01:15)
[2020-03-06] MEDS: DEXT IV SCH (01:15)
[2020-03-06] MEDS: AMINO ACIDS IV SCH (01:15)
[2020-03-06] MEDS: metroNIDAZOLE INJ 500 MG in PREMIX 1 EACH IV SCH ×3 (01:44→17:00)
[2020-03-06 05:21] LABS: Basophils % 0.3 % (0.0-0.8); Eosinophils # 0.2 10*3/uL (0.0-0.87); Eosinophils % 1.8 % (0.00-10.9); Hematocrit 31.3 VOL% (35.7-47.0); Hemoglobin 9.8 GM/DL (12.0-16.0); Immature Granulocytes % 1.5 %; Immature Granulocytes Absolute 0.19 #; Lymphocytes # 2.9 10*3/uL (1.4-4.0); Lymphocytes % 23.2 % (21.3-54.2); Mean Corpuscular HGB Conc 31.3 GM/DL (32-36); Mean Corpuscular Volume 81.7 FL (87-102); Mean Platelet Volume 8.9 FL (9.6-12.0); Monocytes % 10.9 % (1.7-12.7); Neutrophils % 62.3 % (38.7-73.9); Platelet Count 358 T/CUMM (130-400); Red Blood Count 3.83 MC/CUMM (3.8-5.5); Red Cell Distribution Width 21.4 % (9.3-17.3); White Blood Count 12.6 T/CUMM (4-12)
[2020-03-06 05:47] LABS: Calcium 9.3 MG/DL (8.5-10.1); Osmolality,Calculated 278.7 MOS/KG (273-304)
[2020-03-06] MEDS: CIPROFLOXACIN INJ 400 MG in PREMIX 1 EACH IV SCH ×2 (08:20→20:56)
[2020-03-06] MEDS: INSULIN GLARGINE 100 UNIT/ML SUBCUT SCH (08:29)
[2020-03-07] MEDS: metroNIDAZOLE INJ 500 MG in PREMIX 1 EACH IV SCH ×3 (01:13→17:04)
[2020-03-07] MEDS: INSULIN REGULAR 100 UNIT/ML SUBCUT SCH ×4 (01:13→18:17)
[2020-03-07] MEDS: METOPROLOL TARTRATE 5 MG/5 ML VIAL IV SCH ×4 (01:13→18:21)
[2020-03-07 07:01] LABS: Basophils # 0.1 10*3/uL (0.0-0.2); Basophils % 0.5 % (0.0-0.8); Eosinophils # 0.1 10*3/uL (0.0-0.87); Eosinophils % 1.3 % (0.00-10.9); Hemoglobin 9.5 GM/DL (12.0-16.0); Immature Granulocytes % 1.2 %; Immature Granulocytes Absolute 0.13 #; Lymphocytes % 18.5 % (21.3-54.2); Mean Corpuscular HGB Conc 30.6 GM/DL (32-36); Mean Corpuscular Volume 82.9 FL (87-102); Mean Platelet Volume 8.9 FL (9.6-12.0); Monocytes % 9.9 % (1.7-12.7); Neutrophils % 68.6 % (38.7-73.9); Platelet Count 397 T/CUMM (130-400); Red Blood Count 3.74 MC/CUMM (3.8-5.5); Red Cell Distribution Width 21.6 % (9.3-17.3); White Blood Count 10.9 T/CUMM (4-12)
[2020-03-07] MEDS ORDERED: levETIRAcetam LIQUID 100 MG/ML 30 ML/BOTTLE PER TUBE SCH (09:00)
[2020-03-07] MEDS: INSULIN GLARGINE 100 UNIT/ML SUBCUT SCH (09:29)
[2020-03-07] MEDS: CIPROFLOXACIN INJ 400 MG in PREMIX 1 EACH IV SCH ×2 (09:31→20:31)
[2020-03-07] MEDS: DEXTROSE 5% NACL 0.45% 1,000 ML IV SCH (15:19)
[2020-03-08] MEDS: INSULIN REGULAR 100 UNIT/ML SUBCUT SCH ×4 (01:19→17:55)
[2020-03-08] MEDS: METOPROLOL TARTRATE 5 MG/5 ML VIAL IV SCH ×4 (01:19→17:55)
[2020-03-08] MEDS: metroNIDAZOLE INJ 500 MG in PREMIX 1 EACH IV SCH (02:52)
[2020-03-08] MEDS: DEXTROSE 5% NACL 0.45% 1,000 ML IV SCH (04:19)
[2020-03-08 06:22] LABS: Basophils # 0.1 10*3/uL (0.0-0.2); Basophils % 0.4 % (0.0-0.8); Eosinophils # 0.1 10*3/uL (0.0-0.87); Eosinophils % 0.8 % (0.00-10.9); Hematocrit 31.2 VOL% (35.7-47.0); Hemoglobin 9.8 GM/DL (12.0-16.0); Immature Granulocytes Absolute 0.12 #; Lymphocytes # 1.8 10*3/uL (1.4-4.0); Lymphocytes % 15.8 % (21.3-54.2); Mean Corpuscular HGB Conc 31.4 GM/DL (32-36); Mean Corpuscular Volume 81.5 FL (87-102); Mean Platelet Volume 9.2 FL (9.6-12.0); Monocytes % 12.4 % (1.7-12.7); Neutrophils % 69.6 % (38.7-73.9); Platelet Count 435 T/CUMM (130-400); Red Blood Count 3.83 MC/CUMM (3.8-5.5); Red Cell Distribution Width 21.1 % (9.3-17.3); White Blood Count 11.5 T/CUMM (4-12)
[2020-03-08 06:36] LABS: Calcium 9.2 MG/DL (8.5-10.1); Osmolality,Calculated 277.8 MOS/KG (273-304)
[2020-03-08 06:41] LABS: Prealbumin 15.5 MG/DL (20-40)
[2020-03-08] MEDS ORDERED: cefOXitin 2,000 MG in SYRINGE 1 EACH IV ONE (16:00)
[2020-03-08] MEDS: TRACE ELEMENTS IV SCH (17:45)
[2020-03-08] MEDS: [UNRECOGNIZED DRUG - OTHER] IV SCH (17:45)
[2020-03-08] MEDS: MULTIVITAMIN IV SCH (17:45)
[2020-03-09] MEDS: INSULIN REGULAR 100 UNIT/ML SUBCUT SCH ×4 (00:07→18:10)
[2020-03-09] MEDS: METOPROLOL TARTRATE 5 MG/5 ML VIAL IV SCH ×4 (00:08→18:10)
[2020-03-09] MEDS: INSULIN GLARGINE 100 UNIT/ML SUBCUT SCH (09:38)
[2020-03-09] MEDS: DEXTROSE 5% NACL 0.45% 1,000 ML IV SCH (11:11)
[2020-03-09] MEDS ORDERED: LIDOCAINE 1%/EPI INJ 20 ML VIAL ONE (14:36)
[2020-03-09] MEDS ORDERED: BUPIVACAINE 0.25% /EPI 10 ML VIAL ONE (14:36)
[2020-03-09] MEDS ORDERED: TISSUE ADHESIVE 1 EACH APPLICATOR TOP ONE ×2 (14:36→15:57)
[2020-03-09] MEDS ORDERED: propofoL 200 MG/20 ML VIAL IV ONE (16:24)
[2020-03-09] MEDS ORDERED: SEVOFLURANE 1 UNIT/15 MINUTE INH ONE (16:25)
[2020-03-09] MEDS ORDERED: ETOMIDATE 40 MG/20 ML VIAL IV ONE (16:25)
[2020-03-09] MEDS ORDERED: fentaNYL 100 MCG/2 ML VIAL ONE (16:25)
[2020-03-09] MEDS ORDERED: GLYCOPYRROLATE 0.4 MG/2 ML VIAL ONE (16:25)
[2020-03-09] MEDS ORDERED: PHENYLEPHRINE DRIP 20 MG/250 ML PREMIX IV ONE (16:25)
[2020-03-09] MEDS ORDERED: ONDANSETRON 4 MG/2 ML VIAL ONE (16:25)
[2020-03-09] MEDS ORDERED: DEXAMETHASONE 4 MG/1 ML VIAL ONE (16:25)
[2020-03-09] MEDS ORDERED: NEOSTIGMINE 10 MG/10 ML VIAL ONE (16:26)
[2020-03-09] MEDS ORDERED: LIDOCAINE 2% 5 ML VIAL ONE (16:26)
[2020-03-09] MEDS ORDERED: PHENYLEPHRINE 1 MG/10 ML SYRINGE IV ONE (16:26)
[2020-03-09] MEDS ORDERED: ROCURONIUM 100 MG/10 ML VIAL IV ONE (16:26)
[2020-03-09] MEDS: [UNRECOGNIZED DRUG - OTHER] IV SCH (18:10)
[2020-03-09] MEDS: MULTIVITAMIN IV SCH (18:10)
[2020-03-09] MEDS: TRACE ELEMENTS IV SCH (18:10)
[2020-03-09] MEDS: QUEtiapine 25 MG TABLET PO SCH (20:49)
[2020-03-10] MEDS: INSULIN REGULAR 100 UNIT/ML SUBCUT SCH ×4 (00:05→18:10)
[2020-03-10] MEDS: METOPROLOL TARTRATE 5 MG/5 ML VIAL IV SCH ×4 (00:05→17:49)
[2020-03-10 05:32] LABS: Basophils % 0.1 % (0.0-0.8); Hematocrit 31.2 VOL% (35.7-47.0); Hemoglobin 9.9 GM/DL (12.0-16.0); Immature Granulocytes % 0.6 %; Immature Granulocytes Absolute 0.07 #; Lymphocytes % 8.4 % (21.3-54.2); Mean Corpuscular HGB Conc 31.7 GM/DL (32-36); Mean Corpuscular Volume 80.4 FL (87-102); Mean Platelet Volume 9.2 FL (9.6-12.0); Neutrophils % 81.9 % (38.7-73.9); Platelet Count 411 T/CUMM (130-400); Red Blood Count 3.88 MC/CUMM (3.8-5.5); Red Cell Distribution Width 21.2 % (9.3-17.3); White Blood Count 11.5 T/CUMM (4-12)
[2020-03-10 05:56] LABS: Calcium 9.8 MG/DL (8.5-10.1); Osmolality,Calculated 290.7 MOS/KG (273-304)
[2020-03-10] MEDS: INSULIN GLARGINE 100 UNIT/ML SUBCUT SCH (08:35)
[2020-03-10] MEDS: QUEtiapine 25 MG TABLET PO SCH ×2 (08:35→21:51)
[2020-03-10] MEDS: MORPHINE 4 MG/1 ML VIAL IV PRN (14:22)
[2020-03-11] MEDS: METOPROLOL TARTRATE 5 MG/5 ML VIAL IV SCH ×2 (01:43→06:11)
[2020-03-11] MEDS: INSULIN REGULAR 100 UNIT/ML SUBCUT SCH ×3 (01:43→11:03)
[2020-03-11 06:49] LABS: Calcium 9.2 MG/DL (8.5-10.1); Osmolality,Calculated 284.5 MOS/KG (273-304); Prealbumin 15.6 MG/DL (20-40)
[2020-03-11] MEDS: QUEtiapine 25 MG TABLET PO SCH (08:23)
[2020-03-11] MEDS: INSULIN GLARGINE 100 UNIT/ML SUBCUT SCH (08:23)
[2020-03-11 11:29] VITALS: BP 117/78
[2020-03-11] MEDS ORDERED: amLODIPine 10 MG TABLET PO SCH (12:00)
[2020-03-11] MEDS ORDERED: carvediloL 12.5 MG TABLET PO SCH (12:00)
== END 2020-03-11 13:30 | DRG 327 ==
LOC: EDUNIT# → EDBD → N.ED 20:35 → N.EDINP 20:35 → N.TELEN 02-27 02:04 → SUATTDRO 02-28 15:10 → N.TELEN 03-09 16:52
PROVIDERS: ADMIT Hospitalist; ATTEND Hospitalist

== ENCOUNTER 2020-04-30 23:05 | Inpatient (IN) ==
[2020-04-30] MEDS ORDERED: SODIUM CHLORIDE 0.9% 1,000 ML IV STA (23:26)
[2020-04-30] MEDS ORDERED: LEVOFLOXACIN INJ 500 MG in PREMIX 1 EACH IV STA (23:51)
[2020-05-01 00:06] LABS: Basophils % 0.2 % (0.0-0.8); Eosinophils % 0.1 % (0.00-10.9); Hematocrit 44.7 VOL% (35.7-47.0); Hemoglobin 12.5 GM/DL (12.0-16.0); Immature Granulocytes % 0.4 %; Immature Granulocytes Absolute 0.05 #; Lymphocytes # 1.8 10*3/uL (1.4-4.0); Mean Corpuscular Volume 83.6 FL (87-102); Mean Platelet Volume 12.8 FL (9.6-12.0); Monocytes % 6.5 % (1.7-12.7); NRBC # 0.02 10*3/uL; Neutrophils % 78.8 % (38.7-73.9); Platelet Count 226 T/CUMM (130-400); Red Blood Count 5.35 MC/CUMM (3.8-5.5); Red Cell Distribution Width 16.7 % (9.3-17.3); White Blood Count 12.8 T/CUMM (4-12)
[2020-05-01] MEDS ORDERED: PIPERACILLIN/TAZOBACTAM 3,375 MG in SODIUM CHLORIDE 0.9% 100 ML IV STA (00:17)
[2020-05-01 00:23] LABS: Alanine Aminotransferase 28 U/L (13-56); Alkaline Phosphatase 168 U/L (45-117); Aspartate Amino Transferase 15 U/L (0-37); Bilirubin,Total < 0.39 MG/DL (0.2-1.0); Blood Urea Nitrogen 52 MG/DL (7-18); Calcium 10.8 MG/DL (8.5-10.1); Estimated Glom Filtration Rate 35 ML/MIN; Glucose 467 MG/DL (74-106); Osmolality,Calculated 355.2 MOS/KG (273-304); Total Protein 8.6 G/DL (6.4-8.3)
[2020-05-01] MEDS ORDERED: ACETAMINOPHEN 325 MG TABLET PO PRN (02:13)
[2020-05-01] MEDS ORDERED: DEXTROSE 50% 25 GM/50 ML VIAL IV PRN (02:13)
[2020-05-01] MEDS ORDERED: ALBUTEROL/IPRATROPIUM 3 ML NEB RESP TX PRN (02:13)
[2020-05-01] MEDS ORDERED: GLUCAGON 1 MG VIAL IM PRN (02:13)
[2020-05-01] MEDS ORDERED: ONDANSETRON 4 MG/2 ML VIAL IV PRN (02:13)
[2020-05-01] MEDS ORDERED: SODIUM CHLORIDE 0.45% 1,000 ML IV SCH (02:30)
[2020-05-01 04:16] LABS: Anisocytosis 1+; Band Neutrophils 2 % (0-10); Eosinophils 1 % (0-10); Lymphocytes 14 % (20-55); Macrocytosis 1+; Metamyelocytes 1 %; Platelet Estimate Normal; Segmented Neutrophils 78 % (50-85); Total Cells Counted 100
[2020-05-01] MEDS ORDERED: LORazepam 2 MG/1 ML VIAL IV ONE (04:41)
[2020-05-01] MEDS ORDERED: DILTIAZEM 25 MG/5 ML VIAL IV ONE (05:12)
[2020-05-01] MEDS: ACETYLCYSTEINE 20% 800 MG/4 ML VIAL RESP TX SCH ×3 (05:17→19:35)
[2020-05-01] MEDS ORDERED: ALBUTEROL/IPRATROPIUM 3 ML NEB RESP TX ONE ×4 (05:17→05:18)
[2020-05-01 05:18] LABS: Basophils % 0.5 % (0.0-0.8); Hematocrit 49.8 VOL% (35.7-47.0); Hemoglobin 13.9 GM/DL (12.0-16.0); Immature Granulocytes % 0.4 %; Immature Granulocytes Absolute 0.03 #; Lymphocytes # 2.1 10*3/uL (1.4-4.0); Mean Corpuscular HGB Conc 27.9 GM/DL (32-36); Mean Corpuscular Volume 84.7 FL (87-102); Mean Platelet Volume 12.1 FL (9.6-12.0); Monocytes % 6.7 % (1.7-12.7); NRBC # 0.04 10*3/uL; Neutrophils % 63.4 % (38.7-73.9); Red Blood Count 5.88 MC/CUMM (3.8-5.5); Red Cell Distribution Width 17.3 % (9.3-17.3); White Blood Count 7.3 T/CUMM (4-12)
[2020-05-01] MEDS ORDERED: dilTIAZem Drip 125 MG/125 ML PREMIX IV SCH (05:30)
[2020-05-01 05:44] LABS: Platelet Count 131 T/CUMM (130-400)
[2020-05-01 05:46] LABS: Albumin 2.7 G/DL (3.4-5.0); Bilirubin,Total 0.5 MG/DL (0.2-1.0); Calcium 10.7 MG/DL (8.5-10.1); Osmolality,Calculated 346.6 MOS/KG (273-304); Total Protein 8.8 G/DL (6.4-8.3)
[2020-05-01] MEDS: INSULIN LISPRO 100 UNIT/ML SUBCUT SCH ×5 (06:27→23:38)
[2020-05-01] MEDS: SODIUM CHLORIDE 0.45% 1,000 ML IV SCH ×3 (06:29→16:45)
[2020-05-01] MEDS ORDERED: INSULIN LISPRO 100 UNIT/ML SUBCUT SCH ×2 (07:30→10:19)
[2020-05-01] MEDS ORDERED: amLODIPine 10 MG TABLET PO SCH (08:00)
[2020-05-01] MEDS: ALBUTEROL/IPRATROPIUM 3 ML NEB RESP TX SCH ×3 (08:26→19:35)
[2020-05-01 08:35] LABS: ABG Base Excess -3.9 MMOL/L (-2.5-2.5); ABG HCO3 21.1 MMOL/L (20-26); ABG Oxygen Saturation 94.9 % (95-100); ABG PCO2 28.8 MM HG (35-48); ABG PH 7.431 (7.35-7.45); ABG PO2 75.5 MM HG (80-95); ABG TCO2 16.7 MMOL/L (23-27); Allen Test Positive; Pt O2 Delivery Device BIPAP
[2020-05-01] MEDS: FAMOTIDINE 20 MG/2 ML VIAL IV SCH ×2 (09:23→20:05)
[2020-05-01] MEDS: LACTULOSE 20 GM/30 ML UDCUP PO SCH (09:23)
[2020-05-01] MEDS: QUEtiapine 25 MG TABLET PO SCH ×2 (09:24→20:04)
[2020-05-01] MEDS: carvediloL 12.5 MG TABLET PO SCH ×2 (09:24→17:13)
[2020-05-01] MEDS: PIPERACILLIN/TAZOBACTAM 3,375 MG in SODIUM CHLORIDE 0.9% 100 ML IV SCH ×3 (09:32→20:06)
[2020-05-01 10:02] LABS: Band Neutrophils 6 % (0-10); Lymphocytes 24 % (20-55); Metamyelocytes 1 %; Segmented Neutrophils 69 % (50-85); Total Cells Counted 100
[2020-05-01 10:03] LABS: Hypochromasia 3+; Polychromasia Slight
[2020-05-01 10:04] LABS: Microcytosis 1+; Platelet Estimate Adequate; Target Cells 1+
[2020-05-01] MEDS: levETIRAcetam LIQUID 100 MG/ML 30 ML/BOTTLE PO SCH ×2 (10:16→20:05)
[2020-05-01] MEDS ORDERED: SODIUM CHLORIDE 0.45% 1,000 ML IV ONE (10:45)
[2020-05-01] MEDS ORDERED: SODIUM CHLORIDE 0.9% 1,000 ML IV ONE (10:45)
[2020-05-01] MEDS ORDERED: MORPHINE 4 MG/1 ML VIAL IV ONE (12:00)
[2020-05-01] MEDS: methylPREDNISolone SOD SUC 40 MG/1 ML VIAL IV SCH ×2 (12:38→23:38)
[2020-05-01] MEDS: SODIUM CHLORIDE 0.9% 1,000 ML IV SCH ×2 (12:40→16:07)
[2020-05-01] MEDS ORDERED: NOREPINEPHRINE 4 MG/4 ML VIAL IV ONE (13:38)
[2020-05-01] MEDS: NOREPINEPHRINE 8 MG in SODIUM CHLORIDE 0.9% 242 ML IV PRN ×2 (13:44→18:58)
[2020-05-01 14:08] LABS: Calcium 9.1 MG/DL (8.5-10.1)
[2020-05-01] MEDS ORDERED: POTASSIUM CHLORIDE 20 MEQ/15 ML UDCUP PER TUBE ONE (15:34)
[2020-05-01 18:23] LABS: Osmolality,Calculated 337.7 MOS/KG (273-304)
[2020-05-01] MEDS ORDERED: INSULIN GLARGINE 100 UNIT/ML SUBCUT SCH ×2 (21:00)
[2020-05-02] MEDS: ALBUTEROL/IPRATROPIUM 3 ML NEB RESP TX SCH ×4 (01:12→19:24)
[2020-05-02] MEDS: NOREPINEPHRINE 8 MG in SODIUM CHLORIDE 0.9% 242 ML IV PRN ×3 (01:12→16:04)
[2020-05-02 02:15] LABS: Albumin 2.1 G/DL (3.4-5.0); Bilirubin,Total 0.4 MG/DL (0.2-1.0); Calcium 8.7 MG/DL (8.5-10.1); Osmolality,Calculated 334.2 MOS/KG (273-304); Total Protein 7.3 G/DL (6.4-8.3)
[2020-05-02 03:00] LABS: Basophils # 0.1 10*3/uL (0.0-0.2); Basophils % 0.4 % (0.0-0.8); Hematocrit 38.6 VOL% (35.7-47.0); Hemoglobin 10.9 GM/DL (12.0-16.0); Immature Granulocytes % 3.6 %; Immature Granulocytes Absolute 0.57 #; Lymphocytes # 2.5 10*3/uL (1.4-4.0); Lymphocytes % 15.5 % (21.3-54.2); Mean Corpuscular HGB Conc 28.2 GM/DL (32-36); Mean Corpuscular Volume 83.5 FL (87-102); Monocytes % 3.2 % (1.7-12.7); NRBC # 0.02 10*3/uL; Neutrophils % 77.3 % (38.7-73.9); Platelet Count 90 T/CUMM (130-400); Red Blood Count 4.62 MC/CUMM (3.8-5.5); Red Cell Distribution Width 16.2 % (9.3-17.3); White Blood Count 15.9 T/CUMM (4-12)
[2020-05-02] MEDS: SODIUM CHLORIDE 0.45% 1,000 ML IV SCH ×2 (03:57→13:45)
[2020-05-02 04:43] LABS: Allen Test Positive; Pt O2 Delivery Device BIPAP
[2020-05-02 04:44] LABS: ABG Base Excess -6.6 MMOL/L (-2.5-2.5); ABG HCO3 19.2 MMOL/L (20-26); ABG Oxygen Saturation 99.1 % (95-100); ABG PCO2 39.1 MM HG (35-48); ABG PH 7.308 (7.35-7.45); ABG PO2 154.6 MM HG (80-95); ABG TCO2 20.4 MMOL/L (23-27)
[2020-05-02] MEDS: INSULIN LISPRO 100 UNIT/ML SUBCUT SCH ×3 (05:38→17:57)
[2020-05-02] MEDS: PIPERACILLIN/TAZOBACTAM 3,375 MG in SODIUM CHLORIDE 0.9% 100 ML IV SCH (05:38)
[2020-05-02 06:54] LABS: Band Neutrophils 17 % (0-10); Lymphocytes 15 % (20-55); Metamyelocytes 3 %; Platelet Estimate Decreased; Segmented Neutrophils 63 % (50-85); Total Cells Counted 100
[2020-05-02 06:57] LABS: Anisocytosis 1+; Hypochromasia 1+; Microcytosis 1+; Polychromasia Slight
[2020-05-02] MEDS: QUEtiapine 25 MG TABLET PO SCH ×2 (08:03→21:59)
[2020-05-02] MEDS: LACTULOSE 20 GM/30 ML UDCUP PO SCH (08:03)
[2020-05-02] MEDS: FAMOTIDINE 20 MG/2 ML VIAL IV SCH ×2 (08:03→21:59)
[2020-05-02] MEDS: levETIRAcetam LIQUID 100 MG/ML 30 ML/BOTTLE PO SCH ×2 (08:03→21:59)
[2020-05-02] MEDS: carvediloL 12.5 MG TABLET PO SCH ×2 (08:04→16:59)
[2020-05-02] MEDS: ACETYLCYSTEINE 20% 800 MG/4 ML VIAL RESP TX SCH ×2 (08:26→19:24)
[2020-05-02] MEDS ORDERED: INSULIN GLARGINE 100 UNIT/ML SUBCUT SCH (08:39)
[2020-05-02] MEDS ORDERED: CLINDAMYCIN INJ 600 MG in PREMIX 1 EACH IV SCH (09:00)
[2020-05-02] MEDS: ENOXAPARIN 30 MG/0.3 ML SYRINGE SUBCUT SCH (09:15)
[2020-05-02] MEDS: CLINDAMYCIN INJ 600 MG in PREMIX 1 EACH IV SCH ×2 (12:18→18:01)
[2020-05-02] MEDS: methylPREDNISolone SOD SUC 40 MG/1 ML VIAL IV SCH ×2 (12:18→22:15)
[2020-05-03] MEDS: SODIUM CHLORIDE 0.45% 1,000 ML IV SCH (00:20)
[2020-05-03] MEDS: ALBUTEROL/IPRATROPIUM 3 ML NEB RESP TX SCH ×4 (00:27→20:20)
[2020-05-03] MEDS: INSULIN LISPRO 100 UNIT/ML SUBCUT SCH ×6 (00:29→20:45)
[2020-05-03] MEDS: CLINDAMYCIN INJ 600 MG in PREMIX 1 EACH IV SCH ×3 (03:17→18:30)
[2020-05-03 04:36] LABS: Calcium 8.7 MG/DL (8.5-10.1)
[2020-05-03 04:54] LABS: ABG Base Excess -2.7 MMOL/L (-2.5-2.5); ABG HCO3 20.1 MMOL/L (20-26); ABG Oxygen Saturation 91.1 % (95-100); ABG PH 7.474 (7.35-7.45); ABG PO2 57.4 MM HG (80-95); Allen Test Positive; Pt O2 Delivery Device Venturi Mask
[2020-05-03] MEDS: ACETYLCYSTEINE 20% 800 MG/4 ML VIAL RESP TX SCH ×2 (07:48→20:20)
[2020-05-03] MEDS ORDERED: POTASSIUM CHLORIDE 20 MEQ/15 ML UDCUP PER TUBE ONE (07:50)
[2020-05-03] MEDS: LACTULOSE 20 GM/30 ML UDCUP PO SCH (09:12)
[2020-05-03] MEDS: QUEtiapine 25 MG TABLET PO SCH ×2 (09:13→20:45)
[2020-05-03] MEDS: carvediloL 12.5 MG TABLET PO SCH ×2 (09:13→18:00)
[2020-05-03] MEDS: ENOXAPARIN 30 MG/0.3 ML SYRINGE SUBCUT SCH (09:15)
[2020-05-03] MEDS: FAMOTIDINE 20 MG/2 ML VIAL IV SCH ×2 (09:16→20:44)
[2020-05-03] MEDS: levETIRAcetam LIQUID 100 MG/ML 30 ML/BOTTLE PO SCH ×2 (10:00→20:46)
[2020-05-03 11:51] LABS: Basophils % 0.3 % (0.0-0.8); Hematocrit 34.6 VOL% (35.7-47.0); Hemoglobin 10.2 GM/DL (12.0-16.0); Immature Granulocytes % 1.2 %; Immature Granulocytes Absolute 0.17 #; Lymphocytes # 1.1 10*3/uL (1.4-4.0); Lymphocytes % 7.4 % (21.3-54.2); Mean Corpuscular HGB Conc 29.5 GM/DL (32-36); Mean Corpuscular Volume 80.1 FL (87-102); Monocytes % 3.6 % (1.7-12.7); NRBC # 0.42 10*3/uL; Neutrophils % 87.5 % (38.7-73.9); Red Blood Count 4.32 MC/CUMM (3.8-5.5); Red Cell Distribution Width 15.8 % (9.3-17.3); White Blood Count 14.2 T/CUMM (4-12)
[2020-05-03 11:52] LABS: Platelet Count 95 T/CUMM (130-400)
[2020-05-03] MEDS ORDERED: POTASSIUM PHOSPHATE 40 MMOL in SODIUM CHLORIDE 0.9% 250 ML IV ONE (12:00)
[2020-05-03] MEDS: methylPREDNISolone SOD SUC 40 MG/1 ML VIAL IV SCH (12:05)
[2020-05-03 12:11] LABS: Band Neutrophils 1 % (0-10); Eosinophils 1 % (0-10); Hypochromasia 1+; Lymphocytes 11 % (20-55); Microcytosis Slight; Nucleated Red Blood Cells 2 (0-5); Ovalocytes Slight; Platelet Estimate Decreased; Segmented Neutrophils 82 % (50-85); Total Cells Counted 100
[2020-05-03] MEDS: INSULIN GLARGINE 100 UNIT/ML SUBCUT SCH (20:44)
[2020-05-04] MEDS: ALBUTEROL/IPRATROPIUM 3 ML NEB RESP TX SCH ×4 (01:30→19:44)
[2020-05-04] MEDS: INSULIN LISPRO 100 UNIT/ML SUBCUT SCH ×6 (01:32→21:45)
[2020-05-04 03:58] LABS: ABG Base Excess -1.9 MMOL/L (-2.5-2.5); ABG HCO3 20.7 MMOL/L (20-26); ABG Oxygen Saturation 96.2 % (95-100); ABG PCO2 28.1 MM HG (35-48); ABG PH 7.486 (7.35-7.45); ABG PO2 82.3 MM HG (80-95); ABG TCO2 21.6 MMOL/L (23-27); Allen Test Positive; Pt O2 Delivery Device Venturi Mask
[2020-05-04] MEDS: CLINDAMYCIN INJ 600 MG in PREMIX 1 EACH IV SCH ×3 (03:59→17:30)
[2020-05-04 05:20] LABS: Basophils % 0.2 % (0.0-0.8); Hematocrit 31.3 VOL% (35.7-47.0); Hemoglobin 9.4 GM/DL (12.0-16.0); Immature Granulocytes % 2.2 %; Immature Granulocytes Absolute 0.38 #; Lymphocytes # 1.4 10*3/uL (1.4-4.0); Lymphocytes % 7.9 % (21.3-54.2); Mean Corpuscular Volume 78.4 FL (87-102); Monocytes % 5.1 % (1.7-12.7); NRBC # 0.31 10*3/uL; Neutrophils % 84.6 % (38.7-73.9); Platelet Count 104 T/CUMM (130-400); Red Blood Count 3.99 MC/CUMM (3.8-5.5); Red Cell Distribution Width 15.4 % (9.3-17.3); White Blood Count 17.5 T/CUMM (4-12)
[2020-05-04 05:39] LABS: Band Neutrophils 2 % (0-10); Lymphocytes 10 % (20-55); Myelocytes 1 %; Nucleated Red Blood Cells 2 (0-5); Platelet Estimate Decreased; Segmented Neutrophils 85 % (50-85); Total Cells Counted 100
[2020-05-04 05:40] LABS: Hypochromasia 1+; Microcytosis 1+; Ovalocytes Slight
[2020-05-04 05:42] LABS: Calcium 8.7 MG/DL (8.5-10.1)
[2020-05-04] MEDS: ACETYLCYSTEINE 20% 800 MG/4 ML VIAL RESP TX SCH ×2 (07:39→19:44)
[2020-05-04] MEDS: QUEtiapine 25 MG TABLET PO SCH ×2 (09:09→21:47)
[2020-05-04] MEDS: carvediloL 12.5 MG TABLET PO SCH ×2 (09:09→17:44)
[2020-05-04] MEDS: FAMOTIDINE 20 MG/2 ML VIAL IV SCH ×2 (09:10→21:46)
[2020-05-04] MEDS: methylPREDNISolone SOD SUC 40 MG/1 ML VIAL IV SCH ×2 (09:10→21:46)
[2020-05-04] MEDS: levETIRAcetam LIQUID 100 MG/ML 30 ML/BOTTLE PO SCH ×2 (09:13→21:47)
[2020-05-04] MEDS: ENOXAPARIN 30 MG/0.3 ML SYRINGE SUBCUT SCH (09:14)
[2020-05-04] MEDS: SODIUM CHLORIDE 0.45% 1,000 ML IV SCH (20:01)
[2020-05-04] MEDS: INSULIN GLARGINE 100 UNIT/ML SUBCUT SCH (21:46)
[2020-05-05] MEDS: INSULIN LISPRO 100 UNIT/ML SUBCUT SCH ×6 (01:22→22:00)
[2020-05-05] MEDS: ALBUTEROL/IPRATROPIUM 3 ML NEB RESP TX SCH ×4 (01:31→19:38)
[2020-05-05] MEDS: CLINDAMYCIN INJ 600 MG in PREMIX 1 EACH IV SCH ×3 (03:58→21:59)
[2020-05-05 05:12] LABS: Basophils # 0.1 10*3/uL (0.0-0.2); Basophils % 0.6 % (0.0-0.8); Eosinophils % 0.1 % (0.00-10.9); Hematocrit 36.8 VOL% (35.7-47.0); Immature Granulocytes % 5.4 %; Lymphocytes # 1.2 10*3/uL (1.4-4.0); Lymphocytes % 7.1 % (21.3-54.2); Mean Corpuscular HGB Conc 30.7 GM/DL (32-36); Monocytes % 4.3 % (1.7-12.7); NRBC # 0.14 10*3/uL; Neutrophils % 82.5 % (38.7-73.9); Platelet Count 119 T/CUMM (130-400); Red Blood Count 4.78 MC/CUMM (3.8-5.5); Red Cell Distribution Width 15.2 % (9.3-17.3); White Blood Count 16.7 T/CUMM (4-12)
[2020-05-05 05:16] LABS: Hemoglobin 11.3 GM/DL (12.0-16.0)
[2020-05-05 05:31] LABS: Alanine Aminotransferase 20 U/L (13-56); Alkaline Phosphatase 141 U/L (45-117); Aspartate Amino Transferase 14 U/L (0-37); Bilirubin,Total < 0.39 MG/DL (0.2-1.0); Blood Urea Nitrogen 21 MG/DL (7-18); Calcium 9.2 MG/DL (8.5-10.1); Estimated Glom Filtration Rate 93 ML/MIN; Glucose 242 MG/DL (74-106); Osmolality,Calculated 293.1 MOS/KG (273-304); Total Protein 7.3 G/DL (6.4-8.3)
[2020-05-05 05:42] LABS: Band Neutrophils 2 % (0-10); Hypochromasia 1+; Lymphocytes 9 % (20-55); Microcytosis 1+; Nucleated Red Blood Cells 1 (0-5); Platelet Estimate Decreased; Segmented Neutrophils 85 % (50-85); Total Cells Counted 100
[2020-05-05] MEDS: ACETYLCYSTEINE 20% 800 MG/4 ML VIAL RESP TX SCH ×2 (08:09→19:38)
[2020-05-05] MEDS: QUEtiapine 25 MG TABLET PO SCH ×2 (08:37→22:00)
[2020-05-05] MEDS: carvediloL 12.5 MG TABLET PO SCH ×2 (08:37→17:11)
[2020-05-05] MEDS: methylPREDNISolone SOD SUC 40 MG/1 ML VIAL IV SCH ×2 (08:38→21:57)
[2020-05-05] MEDS: ENOXAPARIN 40 MG/0.4 ML SYRINGE SUBCUT SCH (08:38)
[2020-05-05] MEDS: FAMOTIDINE 20 MG/2 ML VIAL IV SCH ×2 (08:38→21:58)
[2020-05-05] MEDS: levETIRAcetam LIQUID 100 MG/ML 30 ML/BOTTLE PO SCH ×2 (08:39→22:00)
[2020-05-05 12:55] LABS: Bilirubin,Urine Negative (Negative); Blood, Urine Moderate mg/dL (Negative); Glucose,Urine (UA) 150 mg/dL (Negative); Ketones,Urine Negative (Negative); Mucus,Urine Occasional /LPF (Occasional); Nitrite,Urine Negative (Negative); Protein,Urine Negative; RBC,Urine 44 /HPF (0-4); Squamous Epithelial Cell,Urine Occasional /HPF (0-10); Urine Appearance CLEAR (Clear); Urine Color Yellow (Yellow); Urine Specific Gravity 1.013 (1.001-1.035); Urine Urobilinogen < 2.0 EU/DL (0.2-1.0); WBC,Urine <1 /HPF (0-6)
[2020-05-05] MEDS: INSULIN GLARGINE 100 UNIT/ML SUBCUT SCH (22:01)
[2020-05-06] MEDS: ALBUTEROL/IPRATROPIUM 3 ML NEB RESP TX SCH ×4 (00:58→18:58)
[2020-05-06] MEDS: INSULIN LISPRO 100 UNIT/ML SUBCUT SCH ×6 (01:24→22:17)
[2020-05-06] MEDS: CLINDAMYCIN INJ 600 MG in PREMIX 1 EACH IV SCH ×3 (05:24→22:18)
[2020-05-06 06:35] LABS: Basophils # 0.1 10*3/uL (0.0-0.2); Basophils % 0.7 % (0.0-0.8); Hematocrit 34.3 VOL% (35.7-47.0); Hemoglobin 10.5 GM/DL (12.0-16.0); Immature Granulocytes % 7.7 %; Immature Granulocytes Absolute 1.19 #; Lymphocytes # 1.7 10*3/uL (1.4-4.0); Mean Corpuscular HGB Conc 30.6 GM/DL (32-36); Mean Corpuscular Volume 76.2 FL (87-102); Monocytes % 6.6 % (1.7-12.7); NRBC # 0.13 10*3/uL; Platelet Count 138 T/CUMM (130-400); Red Cell Distribution Width 15.2 % (9.3-17.3); White Blood Count 15.4 T/CUMM (4-12)
[2020-05-06 06:58] LABS: Band Neutrophils 2 % (0-10); Calcium 8.9 MG/DL (8.5-10.1); Hypochromasia 1+; Lymphocytes 9 % (20-55); Microcytosis 1+; Osmolality,Calculated 291.3 MOS/KG (273-304); Platelet Estimate Normal; Segmented Neutrophils 82 % (50-85); Total Cells Counted 100
[2020-05-06] MEDS: ACETYLCYSTEINE 20% 800 MG/4 ML VIAL RESP TX SCH ×2 (07:07→18:58)
[2020-05-06] MEDS: carvediloL 12.5 MG TABLET PO SCH ×2 (09:20→16:59)
[2020-05-06] MEDS: methylPREDNISolone SOD SUC 40 MG/1 ML VIAL IV SCH (09:21)
[2020-05-06] MEDS: levETIRAcetam LIQUID 100 MG/ML 30 ML/BOTTLE PO SCH ×2 (09:22→22:17)
[2020-05-06] MEDS: ENOXAPARIN 40 MG/0.4 ML SYRINGE SUBCUT SCH (09:22)
[2020-05-06] MEDS: FAMOTIDINE 20 MG/2 ML VIAL IV SCH ×2 (09:23→22:18)
[2020-05-06] MEDS: QUEtiapine 25 MG TABLET PO SCH ×2 (09:23→22:18)
[2020-05-06] MEDS: cefTRIAXone 1,000 MG in SYRINGE 1 EACH IV SCH (12:02)
[2020-05-06] MEDS: MENTHOL/ZINC OXIDE OINT 71 GM JAR TOP SCH (22:17)
[2020-05-06] MEDS: INSULIN GLARGINE 100 UNIT/ML SUBCUT SCH (22:17)
[2020-05-07] MEDS: ALBUTEROL/IPRATROPIUM 3 ML NEB RESP TX SCH ×4 (00:40→18:50)
[2020-05-07] MEDS: INSULIN LISPRO 100 UNIT/ML SUBCUT SCH ×6 (01:17→20:23)
[2020-05-07] MEDS: CLINDAMYCIN INJ 600 MG in PREMIX 1 EACH IV SCH ×3 (05:40→22:19)
[2020-05-07] MEDS: ACETYLCYSTEINE 20% 800 MG/4 ML VIAL RESP TX SCH ×2 (07:12→18:50)
[2020-05-07 07:28] LABS: Basophils # 0.1 10*3/uL (0.0-0.2); Basophils % 0.8 % (0.0-0.8); Eosinophils % 0.2 % (0.00-10.9); Hematocrit 37.5 VOL% (35.7-47.0); Hemoglobin 11.8 GM/DL (12.0-16.0); Immature Granulocytes % 8.6 %; Lymphocytes # 2.4 10*3/uL (1.4-4.0); Lymphocytes % 17.5 % (21.3-54.2); Mean Corpuscular HGB Conc 31.5 GM/DL (32-36); Mean Corpuscular Volume 75.8 FL (87-102); Mean Platelet Volume 11.4 FL (9.6-12.0); Monocytes % 10.1 % (1.7-12.7); NRBC # 0.08 10*3/uL; Neutrophils % 62.8 % (38.7-73.9); Platelet Count 179 T/CUMM (130-400); Red Blood Count 4.95 MC/CUMM (3.8-5.5); Red Cell Distribution Width 15.4 % (9.3-17.3)
[2020-05-07 07:48] LABS: Calcium 9.2 MG/DL (8.5-10.1); Osmolality,Calculated 285.4 MOS/KG (273-304)
[2020-05-07 07:56] LABS: Atypical Lymphocytes Few; Band Neutrophils 4 % (0-10); Lymphocytes 26 % (20-55); Metamyelocytes 1 %; Myelocytes 2 %; Nucleated Red Blood Cells 4 (0-5); Platelet Estimate Normal; Segmented Neutrophils 61 % (50-85); Smudge Cells Few; Total Cells Counted 100
[2020-05-07 07:57] LABS: Anisocytosis 1+
[2020-05-07 08:06] LABS: Hypochromasia Slight
[2020-05-07] MEDS: QUEtiapine 25 MG TABLET PO SCH ×2 (09:39→22:21)
[2020-05-07] MEDS: carvediloL 12.5 MG TABLET PO SCH ×2 (09:39→17:51)
[2020-05-07] MEDS: MENTHOL/ZINC OXIDE OINT 71 GM JAR TOP SCH ×2 (09:40→22:17)
[2020-05-07] MEDS: FAMOTIDINE 20 MG/2 ML VIAL IV SCH ×2 (09:40→22:12)
[2020-05-07] MEDS: ENOXAPARIN 40 MG/0.4 ML SYRINGE SUBCUT SCH (09:40)
[2020-05-07] MEDS: levETIRAcetam LIQUID 100 MG/ML 30 ML/BOTTLE PO SCH ×2 (09:41→22:17)
[2020-05-07] MEDS: cefTRIAXone 1,000 MG in SYRINGE 1 EACH IV SCH (15:24)
[2020-05-07] MEDS: INSULIN GLARGINE 100 UNIT/ML SUBCUT SCH (20:23)
[2020-05-08] MEDS: ALBUTEROL/IPRATROPIUM 3 ML NEB RESP TX SCH ×4 (00:30→19:40)
[2020-05-08] MEDS: INSULIN LISPRO 100 UNIT/ML SUBCUT SCH ×6 (00:37→22:10)
[2020-05-08] MEDS: CLINDAMYCIN INJ 600 MG in PREMIX 1 EACH IV SCH ×3 (05:20→22:24)
[2020-05-08 06:01] LABS: Basophils # 0.1 10*3/uL (0.0-0.2); Basophils % 0.5 % (0.0-0.8); Eosinophils # 0.1 10*3/uL (0.0-0.87); Eosinophils % 0.4 % (0.00-10.9); Hematocrit 34.2 VOL% (35.7-47.0); Hemoglobin 10.6 GM/DL (12.0-16.0); Immature Granulocytes % 5.7 %; Immature Granulocytes Absolute 0.93 #; Lymphocytes # 2.6 10*3/uL (1.4-4.0); Lymphocytes % 16.2 % (21.3-54.2); Mean Corpuscular Volume 76.2 FL (87-102); Mean Platelet Volume 10.7 FL (9.6-12.0); Monocytes % 7.8 % (1.7-12.7); NRBC # 0.02 10*3/uL; Neutrophils % 69.4 % (38.7-73.9); Platelet Count 241 T/CUMM (130-400); Red Blood Count 4.49 MC/CUMM (3.8-5.5); Red Cell Distribution Width 15.2 % (9.3-17.3); White Blood Count 16.2 T/CUMM (4-12)
[2020-05-08 06:31] LABS: Band Neutrophils 1 % (0-10); Hypochromasia Slight; Lymphocytes 20 % (20-55); Microcytosis 1+; Platelet Estimate Normal; Segmented Neutrophils 74 % (50-85); Total Cells Counted 100
[2020-05-08] MEDS: ACETYLCYSTEINE 20% 800 MG/4 ML VIAL RESP TX SCH ×2 (07:51→19:40)
[2020-05-08] MEDS: carvediloL 12.5 MG TABLET PO SCH ×2 (10:07→17:06)
[2020-05-08] MEDS: QUEtiapine 25 MG TABLET PO SCH ×2 (10:07→22:11)
[2020-05-08] MEDS: ENOXAPARIN 40 MG/0.4 ML SYRINGE SUBCUT SCH (10:08)
[2020-05-08] MEDS: levETIRAcetam LIQUID 100 MG/ML 30 ML/BOTTLE PO SCH ×2 (10:08→22:10)
[2020-05-08] MEDS: MENTHOL/ZINC OXIDE OINT 71 GM JAR TOP SCH ×2 (10:08→22:11)
[2020-05-08] MEDS: FAMOTIDINE 20 MG/2 ML VIAL IV SCH ×2 (10:09→22:11)
[2020-05-08] MEDS: cefTRIAXone 1,000 MG in SYRINGE 1 EACH IV SCH (12:07)
[2020-05-08] MEDS: INSULIN GLARGINE 100 UNIT/ML SUBCUT SCH (22:10)
[2020-05-09] MEDS: ALBUTEROL/IPRATROPIUM 3 ML NEB RESP TX SCH ×4 (00:12→19:33)
[2020-05-09] MEDS: INSULIN LISPRO 100 UNIT/ML SUBCUT SCH ×6 (00:25→21:21)
[2020-05-09] MEDS: CLINDAMYCIN INJ 600 MG in PREMIX 1 EACH IV SCH (07:39)
[2020-05-09] MEDS: ACETYLCYSTEINE 20% 800 MG/4 ML VIAL RESP TX SCH ×2 (07:48→19:33)
[2020-05-09] MEDS ORDERED: ENOXAPARIN 80 MG/0.8 ML SYRINGE SUBCUT SCH (09:00)
[2020-05-09 09:11] LABS: Basophils % 0.3 % (0.0-0.8); Eosinophils # 0.2 10*3/uL (0.0-0.87); Eosinophils % 1.2 % (0.00-10.9); Hematocrit 33.4 VOL% (35.7-47.0); Hemoglobin 10.2 GM/DL (12.0-16.0); Immature Granulocytes % 3.6 %; Immature Granulocytes Absolute 0.53 #; Lymphocytes # 2.1 10*3/uL (1.4-4.0); Lymphocytes % 14.1 % (21.3-54.2); Mean Corpuscular HGB Conc 30.5 GM/DL (32-36); Mean Corpuscular Volume 75.9 FL (87-102); Mean Platelet Volume 11.8 FL (9.6-12.0); Neutrophils % 74.8 % (38.7-73.9); Platelet Count 128 T/CUMM (130-400); Red Cell Distribution Width 15.7 % (9.3-17.3); White Blood Count 14.6 T/CUMM (4-12)
[2020-05-09] MEDS: MENTHOL/ZINC OXIDE OINT 71 GM JAR TOP SCH ×2 (09:13→21:55)
[2020-05-09] MEDS: QUEtiapine 25 MG TABLET PO SCH ×2 (09:13→21:55)
[2020-05-09] MEDS: carvediloL 12.5 MG TABLET PO SCH ×2 (09:13→16:58)
[2020-05-09] MEDS: FAMOTIDINE 20 MG/2 ML VIAL IV SCH ×2 (09:13→21:55)
[2020-05-09 09:29] LABS: Calcium 9.3 MG/DL (8.5-10.1)
[2020-05-09 09:33] LABS: Eosinophils 1 % (0-10); Hypochromasia 1+; Lymphocytes 18 % (20-55); Microcytosis 1+; Segmented Neutrophils 74 % (50-85); Total Cells Counted 100
[2020-05-09] MEDS: levETIRAcetam LIQUID 100 MG/ML 30 ML/BOTTLE PO SCH ×2 (10:04→22:28)
[2020-05-09 12:16] LABS: Bacteria,Urine Many /HPF (Few); Bilirubin,Urine Negative (Negative); Blood, Urine Negative (Negative); Glucose,Urine (UA) 50 mg/dL (Negative); Ketones,Urine Negative (Negative); Nitrite,Urine Negative (Negative); Protein,Urine Negative; RBC,Urine 8 /HPF (0-4); Squamous Epithelial Cell,Urine Occasional /HPF (0-10); Urine Appearance CLOUDY (Clear); Urine Color Yellow (Yellow); Urine Specific Gravity 1.013 (1.001-1.035); Urine Urobilinogen < 2.0 EU/DL (0.2-1.0); WBC,Urine 2 /HPF (0-6)
[2020-05-09] MEDS: PIPERACILLIN/TAZOBACTAM 3,375 MG in SODIUM CHLORIDE 0.9% 100 ML IV SCH ×2 (12:22→17:00)
[2020-05-09] MEDS: INSULIN GLARGINE 100 UNIT/ML SUBCUT SCH (21:20)
[2020-05-09] MEDS: APIXABAN 5 MG TABLET PO SCH (21:55)
[2020-05-10] MEDS: ALBUTEROL/IPRATROPIUM 3 ML NEB RESP TX SCH ×4 (01:10→19:19)
[2020-05-10] MEDS: INSULIN LISPRO 100 UNIT/ML SUBCUT SCH ×6 (01:15→20:53)
[2020-05-10] MEDS: PIPERACILLIN/TAZOBACTAM 3,375 MG in SODIUM CHLORIDE 0.9% 100 ML IV SCH ×3 (01:16→17:47)
[2020-05-10 05:36] LABS: Basophils % 0.2 % (0.0-0.8); Eosinophils # 0.2 10*3/uL (0.0-0.87); Eosinophils % 1.2 % (0.00-10.9); Hematocrit 33.9 VOL% (35.7-47.0); Hemoglobin 10.1 GM/DL (12.0-16.0); Immature Granulocytes % 2.7 %; Immature Granulocytes Absolute 0.39 #; Lymphocytes # 2.2 10*3/uL (1.4-4.0); Lymphocytes % 15.4 % (21.3-54.2); Mean Corpuscular HGB Conc 29.8 GM/DL (32-36); Mean Corpuscular Volume 76.5 FL (87-102); Mean Platelet Volume 10.7 FL (9.6-12.0); Monocytes % 6.6 % (1.7-12.7); Neutrophils % 73.9 % (38.7-73.9); Platelet Count 343 T/CUMM (130-400); Red Blood Count 4.43 MC/CUMM (3.8-5.5); Red Cell Distribution Width 15.7 % (9.3-17.3); White Blood Count 14.2 T/CUMM (4-12)
[2020-05-10 05:48] LABS: Calcium 9.7 MG/DL (8.5-10.1); Osmolality,Calculated 275.8 MOS/KG (273-304)
[2020-05-10] MEDS: ACETYLCYSTEINE 20% 800 MG/4 ML VIAL RESP TX SCH ×2 (07:16→19:19)
[2020-05-10] MEDS: carvediloL 12.5 MG TABLET PO SCH ×2 (09:59→17:47)
[2020-05-10] MEDS: APIXABAN 5 MG TABLET PO SCH ×2 (10:00→20:53)
[2020-05-10] MEDS: levETIRAcetam LIQUID 100 MG/ML 30 ML/BOTTLE PO SCH ×2 (10:00→21:43)
[2020-05-10] MEDS: QUEtiapine 25 MG TABLET PO SCH ×2 (10:00→20:53)
[2020-05-10] MEDS: FAMOTIDINE 20 MG/2 ML VIAL IV SCH ×2 (10:00→20:54)
[2020-05-10] MEDS: MENTHOL/ZINC OXIDE OINT 71 GM JAR TOP SCH ×2 (10:01→20:52)
[2020-05-10 16:31] LABS: ABG Base Excess 6.1 MMOL/L (-2.5-2.5); ABG Oxygen Saturation 99.3 % (95-100); ABG PCO2 43.9 MM HG (35-48); ABG PH 7.452 (7.35-7.45); ABG TCO2 28.2 MMOL/L (23-27)
[2020-05-10] MEDS: INSULIN GLARGINE 100 UNIT/ML SUBCUT SCH (20:54)
[2020-05-11] MEDS: ALBUTEROL/IPRATROPIUM 3 ML NEB RESP TX SCH ×4 (01:15→19:33)
[2020-05-11] MEDS: INSULIN LISPRO 100 UNIT/ML SUBCUT SCH ×6 (01:38→23:52)
[2020-05-11] MEDS: PIPERACILLIN/TAZOBACTAM 3,375 MG in SODIUM CHLORIDE 0.9% 100 ML IV SCH ×3 (02:14→18:20)
[2020-05-11 07:04] LABS: Basophils % 0.2 % (0.0-0.8); Eosinophils # 0.1 10*3/uL (0.0-0.87); Eosinophils % 0.9 % (0.00-10.9); Hematocrit 31.1 VOL% (35.7-47.0); Hemoglobin 9.3 GM/DL (12.0-16.0); Immature Granulocytes % 1.6 %; Immature Granulocytes Absolute 0.24 #; Lymphocytes # 2.3 10*3/uL (1.4-4.0); Lymphocytes % 15.2 % (21.3-54.2); Mean Corpuscular HGB Conc 29.9 GM/DL (32-36); Mean Corpuscular Volume 76.4 FL (87-102); Mean Platelet Volume 10.3 FL (9.6-12.0); Monocytes % 5.9 % (1.7-12.7); Neutrophils % 76.2 % (38.7-73.9); Platelet Count 361 T/CUMM (130-400); Red Blood Count 4.07 MC/CUMM (3.8-5.5); Red Cell Distribution Width 15.9 % (9.3-17.3); White Blood Count 15.3 T/CUMM (4-12)
[2020-05-11] MEDS: ACETYLCYSTEINE 20% 800 MG/4 ML VIAL RESP TX SCH ×2 (07:40→19:33)
[2020-05-11] MEDS: MENTHOL/ZINC OXIDE OINT 71 GM JAR TOP SCH ×2 (09:39→20:17)
[2020-05-11] MEDS: APIXABAN 5 MG TABLET PO SCH ×2 (09:39→20:19)
[2020-05-11] MEDS: carvediloL 12.5 MG TABLET PO SCH ×2 (09:39→16:48)
[2020-05-11] MEDS: QUEtiapine 25 MG TABLET PO SCH ×2 (09:39→20:19)
[2020-05-11] MEDS: levETIRAcetam LIQUID 100 MG/ML 30 ML/BOTTLE PO SCH ×2 (09:40→20:17)
[2020-05-11] MEDS: FAMOTIDINE 20 MG/2 ML VIAL IV SCH ×2 (09:40→20:19)
[2020-05-11] MEDS: INSULIN GLARGINE 100 UNIT/ML SUBCUT SCH (20:19)
[2020-05-12] MEDS: ALBUTEROL/IPRATROPIUM 3 ML NEB RESP TX SCH ×4 (00:52→19:05)
[2020-05-12] MEDS: PIPERACILLIN/TAZOBACTAM 3,375 MG in SODIUM CHLORIDE 0.9% 100 ML IV SCH ×3 (02:14→18:01)
[2020-05-12] MEDS: INSULIN LISPRO 100 UNIT/ML SUBCUT SCH ×5 (04:07→20:52)
[2020-05-12 05:55] LABS: Basophils % 0.1 % (0.0-0.8); Eosinophils # 0.1 10*3/uL (0.0-0.87); Eosinophils % 1.1 % (0.00-10.9); Hematocrit 30.8 VOL% (35.7-47.0); Hemoglobin 9.1 GM/DL (12.0-16.0); Immature Granulocytes % 1.2 %; Immature Granulocytes Absolute 0.14 #; Lymphocytes # 2.1 10*3/uL (1.4-4.0); Lymphocytes % 17.4 % (21.3-54.2); Mean Corpuscular HGB Conc 29.5 GM/DL (32-36); Mean Corpuscular Volume 77.2 FL (87-102); Mean Platelet Volume 10.8 FL (9.6-12.0); Monocytes % 7.4 % (1.7-12.7); Neutrophils % 72.8 % (38.7-73.9); Platelet Count 259 T/CUMM (130-400); Red Blood Count 3.99 MC/CUMM (3.8-5.5); Red Cell Distribution Width 15.9 % (9.3-17.3); White Blood Count 11.8 T/CUMM (4-12)
[2020-05-12] MEDS: ACETYLCYSTEINE 20% 800 MG/4 ML VIAL RESP TX SCH ×2 (07:13→19:05)
[2020-05-12] MEDS: FAMOTIDINE 20 MG/2 ML VIAL IV SCH ×2 (09:17→20:53)
[2020-05-12] MEDS: levETIRAcetam LIQUID 100 MG/ML 30 ML/BOTTLE PO SCH ×2 (09:18→20:55)
[2020-05-12] MEDS: carvediloL 12.5 MG TABLET PO SCH ×2 (09:18→18:01)
[2020-05-12] MEDS: QUEtiapine 25 MG TABLET PO SCH ×2 (09:18→20:53)
[2020-05-12] MEDS: APIXABAN 5 MG TABLET PO SCH ×2 (09:18→20:53)
[2020-05-12] MEDS: MENTHOL/ZINC OXIDE OINT 71 GM JAR TOP SCH ×2 (09:18→20:53)
[2020-05-12] MEDS: INSULIN GLARGINE 100 UNIT/ML SUBCUT SCH (20:55)
[2020-05-13] MEDS: INSULIN LISPRO 100 UNIT/ML SUBCUT SCH ×6 (00:29→21:14)
[2020-05-13] MEDS: ALBUTEROL/IPRATROPIUM 3 ML NEB RESP TX SCH ×4 (00:50→19:24)
[2020-05-13] MEDS: PIPERACILLIN/TAZOBACTAM 3,375 MG in SODIUM CHLORIDE 0.9% 100 ML IV SCH ×3 (02:25→18:11)
[2020-05-13 06:01] LABS: Basophils % 0.2 % (0.0-0.8); Eosinophils # 0.2 10*3/uL (0.0-0.87); Hematocrit 28.8 VOL% (35.7-47.0); Hemoglobin 8.7 GM/DL (12.0-16.0); Immature Granulocytes % 0.8 %; Immature Granulocytes Absolute 0.13 #; Lymphocytes # 1.9 10*3/uL (1.4-4.0); Lymphocytes % 12.1 % (21.3-54.2); Mean Corpuscular HGB Conc 30.2 GM/DL (32-36); Mean Platelet Volume 9.5 FL (9.6-12.0); Monocytes % 7.3 % (1.7-12.7); Neutrophils % 78.6 % (38.7-73.9); Platelet Count 407 T/CUMM (130-400); Red Blood Count 3.74 MC/CUMM (3.8-5.5); Red Cell Distribution Width 15.5 % (9.3-17.3); White Blood Count 15.4 T/CUMM (4-12)
[2020-05-13 06:26] LABS: Osmolality,Calculated 277.7 MOS/KG (273-304)
[2020-05-13] MEDS: ACETYLCYSTEINE 20% 800 MG/4 ML VIAL RESP TX SCH ×2 (06:45→19:24)
[2020-05-13] MEDS: APIXABAN 5 MG TABLET PO SCH ×2 (09:49→21:16)
[2020-05-13] MEDS: carvediloL 12.5 MG TABLET PO SCH (09:50)
[2020-05-13] MEDS: QUEtiapine 25 MG TABLET PO SCH (09:50)
[2020-05-13] MEDS: FAMOTIDINE 20 MG/2 ML VIAL IV SCH ×2 (09:50→21:14)
[2020-05-13] MEDS: MENTHOL/ZINC OXIDE OINT 71 GM JAR TOP SCH ×2 (09:50→21:16)
[2020-05-13] MEDS: levETIRAcetam LIQUID 100 MG/ML 30 ML/BOTTLE PO SCH ×2 (09:52→21:16)
[2020-05-13] MEDS: DILTIAZEM 60 MG TABLET PO SCH ×4 (12:36→21:15)
[2020-05-13] MEDS: INSULIN GLARGINE 100 UNIT/ML SUBCUT SCH (21:14)
[2020-05-13] MEDS: METOPROLOL TARTRATE 50 MG TABLET PO SCH (21:16)
[2020-05-14] MEDS: INSULIN LISPRO 100 UNIT/ML SUBCUT SCH ×6 (00:36→21:23)
[2020-05-14] MEDS: PIPERACILLIN/TAZOBACTAM 3,375 MG in SODIUM CHLORIDE 0.9% 100 ML IV SCH ×2 (01:45→09:13)
[2020-05-14] MEDS: ALBUTEROL/IPRATROPIUM 3 ML NEB RESP TX SCH ×4 (02:55→19:35)
[2020-05-14 05:56] LABS: Basophils % 0.1 % (0.0-0.8); Eosinophils # 0.1 10*3/uL (0.0-0.87); Eosinophils % 0.8 % (0.00-10.9); Hemoglobin 9.1 GM/DL (12.0-16.0); Immature Granulocytes % 0.7 %; Immature Granulocytes Absolute 0.09 #; Lymphocytes # 1.6 10*3/uL (1.4-4.0); Lymphocytes % 11.7 % (21.3-54.2); Mean Corpuscular HGB Conc 30.3 GM/DL (32-36); Mean Corpuscular Volume 77.3 FL (87-102); Mean Platelet Volume 9.2 FL (9.6-12.0); Monocytes % 6.8 % (1.7-12.7); Neutrophils % 79.9 % (38.7-73.9); Platelet Count 414 T/CUMM (130-400); Red Blood Count 3.88 MC/CUMM (3.8-5.5); Red Cell Distribution Width 15.8 % (9.3-17.3); White Blood Count 13.7 T/CUMM (4-12)
[2020-05-14 06:19] LABS: Calcium 9.8 MG/DL (8.5-10.1)
[2020-05-14] MEDS: ACETYLCYSTEINE 20% 800 MG/4 ML VIAL RESP TX SCH ×2 (07:15→19:35)
[2020-05-14] MEDS: METOPROLOL TARTRATE 50 MG TABLET PO SCH ×2 (09:12→21:22)
[2020-05-14] MEDS: DILTIAZEM 60 MG TABLET PO SCH ×4 (09:12→21:22)
[2020-05-14] MEDS: APIXABAN 5 MG TABLET PO SCH ×2 (09:12→21:22)
[2020-05-14] MEDS: FAMOTIDINE 20 MG/2 ML VIAL IV SCH ×2 (09:13→21:20)
[2020-05-14] MEDS: levETIRAcetam LIQUID 100 MG/ML 30 ML/BOTTLE PO SCH ×2 (09:14→21:24)
[2020-05-14] MEDS: MENTHOL/ZINC OXIDE OINT 71 GM JAR TOP SCH ×2 (09:14→21:24)
[2020-05-14 15:05] LABS: ABG Base Excess 5.3 MMOL/L (-2.5-2.5); ABG HCO3 29.2 MMOL/L (20-26); ABG Oxygen Saturation 99.1 % (95-100); ABG PCO2 43.5 MM HG (35-48); ABG PH 7.445 (7.35-7.45); ABG TCO2 27.5 MMOL/L (23-27); Allen Test Positive; Pt O2 Delivery Device Venturi Mask
[2020-05-14] MEDS: INSULIN GLARGINE 100 UNIT/ML SUBCUT SCH (21:23)
[2020-05-15] MEDS: ALBUTEROL/IPRATROPIUM 3 ML NEB RESP TX SCH ×3 (01:18→12:15)
[2020-05-15] MEDS: INSULIN LISPRO 100 UNIT/ML SUBCUT SCH ×6 (01:33→21:07)
[2020-05-15 06:07] LABS: Basophils % 0.1 % (0.0-0.8); Eosinophils # 0.1 10*3/uL (0.0-0.87); Eosinophils % 0.6 % (0.00-10.9); Hematocrit 30.7 VOL% (35.7-47.0); Hemoglobin 9.3 GM/DL (12.0-16.0); Immature Granulocytes % 0.6 %; Immature Granulocytes Absolute 0.09 #; Lymphocytes # 1.6 10*3/uL (1.4-4.0); Mean Corpuscular HGB Conc 30.3 GM/DL (32-36); Mean Corpuscular Volume 76.2 FL (87-102); Mean Platelet Volume 10.7 FL (9.6-12.0); Monocytes % 10.5 % (1.7-12.7); Neutrophils % 77.2 % (38.7-73.9); Platelet Count 363 T/CUMM (130-400); Red Blood Count 4.03 MC/CUMM (3.8-5.5); Red Cell Distribution Width 15.7 % (9.3-17.3); White Blood Count 14.1 T/CUMM (4-12)
[2020-05-15] MEDS: ACETYLCYSTEINE 20% 800 MG/4 ML VIAL RESP TX SCH (07:10)
[2020-05-15] MEDS: FAMOTIDINE 20 MG/2 ML VIAL IV SCH (09:45)
[2020-05-15] MEDS: APIXABAN 5 MG TABLET PO SCH ×2 (09:45→20:46)
[2020-05-15] MEDS: METOPROLOL TARTRATE 50 MG TABLET PO SCH ×2 (09:45→20:46)
[2020-05-15] MEDS: MENTHOL/ZINC OXIDE OINT 71 GM JAR TOP SCH ×2 (09:46→20:46)
[2020-05-15] MEDS: DILTIAZEM 60 MG TABLET PO SCH ×4 (09:46→20:45)
[2020-05-15] MEDS: levETIRAcetam LIQUID 100 MG/ML 30 ML/BOTTLE PO SCH ×2 (09:47→20:46)
[2020-05-15] MEDS: INSULIN GLARGINE 100 UNIT/ML SUBCUT SCH ×2 (17:10→21:07)
[2020-05-15] MEDS: FAMOTIDINE 20 MG TABLET PO SCH ×2 (17:16→20:45)
[2020-05-16] MEDS: INSULIN LISPRO 100 UNIT/ML SUBCUT SCH ×6 (00:50→20:44)
[2020-05-16] MEDS: INSULIN GLARGINE 100 UNIT/ML SUBCUT SCH (08:54)
[2020-05-16] MEDS: MENTHOL/ZINC OXIDE OINT 71 GM JAR TOP SCH ×2 (08:56→20:44)
[2020-05-16] MEDS: APIXABAN 5 MG TABLET PO SCH ×2 (08:56→20:42)
[2020-05-16] MEDS: DILTIAZEM 60 MG TABLET PO SCH ×4 (08:56→20:42)
[2020-05-16] MEDS: METOPROLOL TARTRATE 50 MG TABLET PO SCH ×2 (08:56→20:42)
[2020-05-16] MEDS: FAMOTIDINE 20 MG TABLET PO SCH ×2 (08:56→20:42)
[2020-05-16] MEDS: levETIRAcetam LIQUID 100 MG/ML 30 ML/BOTTLE PO SCH ×2 (08:57→20:43)
[2020-05-16] MEDS ORDERED: INSULIN GLARGINE 100 UNIT/ML SUBCUT SCH (21:00)
[2020-05-17] MEDS: INSULIN LISPRO 100 UNIT/ML SUBCUT SCH ×2 (00:35→05:42)
[2020-05-17] MEDS ORDERED: INSULIN GLARGINE 100 UNIT/ML SUBCUT SCH (09:00)
[2020-05-17] MEDS: FAMOTIDINE 20 MG TABLET PO SCH (09:22)
[2020-05-17] MEDS: DILTIAZEM 60 MG TABLET PO SCH (09:22)
[2020-05-17] MEDS: METOPROLOL TARTRATE 50 MG TABLET PO SCH (09:23)
[2020-05-17] MEDS: APIXABAN 5 MG TABLET PO SCH (09:23)
[2020-05-17] MEDS: MENTHOL/ZINC OXIDE OINT 71 GM JAR TOP SCH (09:26)
[2020-05-17] MEDS: levETIRAcetam LIQUID 100 MG/ML 30 ML/BOTTLE PO SCH (09:26)
[2020-05-17 11:45] VITALS: BP 109/51
== END 2020-05-17 14:36 | DRG 871 ==
LOC: EDUNIT# → EDBD → N.ED 23:05 → SUATTDRO 05-01 02:03 → N.EDINP 05-01 02:03 → SUPCPDRO 05-01 02:03 → N.5E 05-01 03:44 → N.CC 05-01 05:16 → N.3E 05-05 18:37
PROVIDERS: ADMIT Internal Medicine; ATTEND Internal Medicine Geriatric Medicine